=== PATIENT | female | born 1940 | race Caucasian/White ===

== ENCOUNTER 2017-12-20 08:08 | Outpatient (CLI) | payer MEDICARE, MEDICAID, SELFPAY ==
[2017-12-20 11:37] LABS: ALT 56 U/L (12-78); AST 57 U/L (15-37); Albumin 3.4 g/dL (3.4-5.0); Alkaline Phosphatase 94 U/L (46-116); Anion Gap 11.1 mmol/L (3-11); BUN 9 mg/dL (7-18); Bilirubin, Total 0.5 mg/dL (0.2-1.0); CO2 26.9 mmol/L (21.0-32.0); Calcium 8.8 mg/dL (8.5-10.1); Chloride 102 mmol/L (98-107); Glucose 124 mg/dL (70-100); Potassium 3.8 mmol/L (3.5-5.1); Sodium 140 mmol/L (136-145); Total Protein 7.4 g/dL (6.4-8.2)
[2017-12-20 11:45] LABS: CREATININE 0.48 mg/dL (0.55-1.02)
[2017-12-20 12:22] LABS: Hemoglobin A1C 7.4 % (4.5-6.2)
== END 2017-12-20 08:28 ==
PROVIDERS: PCP Family Medicine; Visit Provider Family Medicine
DX: E11.9 Type 2 diabetes mellitus without complications (principal)
CPT/HCPCS: 36415; 80053; 83036

== ENCOUNTER 2018-03-23 18:42 | Outpatient (REF) | payer MEDICARE, MEDICAID, SELFPAY | END 2018-03-23 19:02 | LOC: LBN 18:42 | PROVIDERS: PCP Family Medicine; Visit Provider Family Medicine | DX: J11.1 Influenza due to unidentified influenza virus with other respiratory manifestations (principal) | CPT/HCPCS: 87449 ==

== ENCOUNTER 2018-06-20 09:01 | Outpatient (CLI) | payer MEDICARE, MEDICAID, SELFPAY ==
[2018-06-20 11:26] LABS: HCT 26.6 % (36.0-46.0); HGB 7.4 g/dL (12.0-15.5); Mean Corp. HGB Concentration 27.8 g/dL (32.0-36.0); Mean Corpuscular Hemoglobin 19.6 pg (27.0-33.0); Mean Platelet Volume 10.5 fL (8.0-11.0); Platelet Count 146 x1000/uL (130-400); RBC 3.78 m/cumm (4.00-5.20); RBC Distribution Width 17.2 % (11.7-14.6); White Blood Cell Count 3.03 k/cumm (4.4-10.8)
[2018-06-20 11:53] LABS: Hemoglobin A1C 7.4 % (4.5-6.2); Mean Corpuscular Volume 70.4 fL (80-95)
[2018-06-20 12:03] LABS: ALT 36 U/L (12-78); AST 37 U/L (15-37); Albumin 3.6 g/dL (3.4-5.0); Alkaline Phosphatase 124 U/L (46-116); Anion Gap 8.4 mmol/L (3-11); BUN 8 mg/dL (7-18); Bilirubin, Total 0.5 mg/dL (0.2-1.0); CO2 29.6 mmol/L (21.0-32.0); CREATININE 0.53 mg/dL (0.55-1.02); Calcium 9.1 mg/dL (8.5-10.1); Chloride 105 mmol/L (98-107); Glucose 106 mg/dL (70-100); Potassium 3.9 mmol/L (3.5-5.1); Sodium 143 mmol/L (136-145); TSH 1.22 uIU/mL (0.358-3.74); Total Protein 7.8 g/dL (6.4-8.2)
== END 2018-06-20 09:21 ==
PROVIDERS: PCP Family Medicine; Visit Provider Family Medicine
DX: E11.9 Type 2 diabetes mellitus without complications (principal); R63.4 Abnormal weight loss
CPT/HCPCS: 36415; 80053; 85027; 83036; 84443

== ENCOUNTER 2018-07-18 02:03 | Outpatient (CLI) | payer MEDICARE, MEDICAID, SELFPAY ==
[2018-07-18 13:12] LABS: HCT 31.1 % (36.0-46.0); HGB 9.2 g/dL (12.0-15.5); RBC 3.96 m/cumm (4.00-5.20); White Blood Cell Count 2.91 k/cumm (4.4-10.8)
[2018-07-18 13:13] LABS: Absolute Basophil Count 0.02 k/cumm (0.0-0.2); Absolute Eosinophil Count 0.07 k/cumm (0.0-0.7); Absolute Monocyte Count 0.24 k/cumm (0.11-0.7); Absolute Neutrophil Count 1.68 k/cumm (1.2-6.7); Basophils % 0.7; Eosinophils % 2.4; Lymphocytes % 30.9; Mean Corp. HGB Concentration 29.6 g/dL (32.0-36.0); Mean Corpuscular Hemoglobin 23.2 pg (27.0-33.0); Mean Corpuscular Volume 78.5 fL (80-95); Mean Platelet Volume 11.6 fL (8.0-11.0); Monocytes % 8.2; Neutrophils % 57.8; RBC Distribution Width 26.5 % (11.7-14.6)
[2018-07-18 13:32] LABS: Iron 58 ug/dL (50-175); Total Iron Binding Capacity 413 ug/dL (250-450); Transferrin Sat 14 % (15-50)
[2018-07-18 13:41] LABS: ALT 46 U/L (12-78); AST 50 U/L (15-37); Albumin 3.4 g/dL (3.4-5.0); Alkaline Phosphatase 131 U/L (46-116); Anion Gap 9.5 mmol/L (3-11); BUN 17 mg/dL (7-18); Bilirubin, Total 0.4 mg/dL (0.2-1.0); CO2 26.5 mmol/L (21.0-32.0); CREATININE 0.65 mg/dL (0.55-1.02); Calcium 8.7 mg/dL (8.5-10.1); Chloride 99 mmol/L (98-107); Ferritin 101 ng/mL (8-388); Glucose 291 mg/dL (70-100); Potassium 4.3 mmol/L (3.5-5.1); Sodium 135 mmol/L (136-145); Total Protein 7.5 g/dL (6.4-8.2)
[2018-07-18 13:58] LABS: Platelet Count 111 x1000/uL (130-400)
[2018-07-18 13:59] LABS: Anisocytosis 3+; Diff Comment RBC Morph Reviewed; Hypochromasia 2+; Macrocytosis 1+; Microcytosis 1+
[2018-07-18 14:00] LABS: Poikilocytes 1+
== END 2018-07-18 02:23 ==
PROVIDERS: PCP Family Medicine; Visit Provider Dermatology
DX: C22.0 Liver cell carcinoma (principal); D50.9 Iron deficiency anemia, unspecified
CPT/HCPCS: 36415; 80053; 82105; 82728; 83540; 83550; 85025

== ENCOUNTER 2018-11-05 10:37 | Outpatient (CLI) | payer MEDICARE, MEDICAID, SELFPAY ==
[2018-11-05 12:30] LABS: HCT 34.4 % (36.0-46.0); HGB 11.5 g/dL (12.0-15.5); Mean Corp. HGB Concentration 33.4 g/dL (32.0-36.0); Mean Corpuscular Hemoglobin 30.5 pg (27.0-33.0); Mean Corpuscular Volume 91.2 fL (80-95); Mean Platelet Volume 10.9 fL (8.0-11.0); Platelet Count 102 x1000/uL (130-400); RBC 3.77 m/cumm (4.00-5.20); White Blood Cell Count 3.42 k/cumm (4.4-10.8)
[2018-11-05 12:32] LABS: Iron 119 ug/dL (50-175); Total Iron Binding Capacity 279 ug/dL (250-450); Transferrin Sat 43 % (15-50)
[2018-11-05 12:39] LABS: COMMENT (LAB VIEW ONLY) 130.51 mg/dL; Microalb ug/mg Crea 61.3 ug/mg Cr
[2018-11-05 13:14] LABS: ALT 55 U/L (12-78); AST 48 U/L (15-37); Albumin 3.6 g/dL (3.4-5.0); Alkaline Phosphatase 109 U/L (46-116); BUN 10 mg/dL (7-18); Bilirubin, Total 0.7 mg/dL (0.2-1.0); CREATININE 0.63 mg/dL (0.55-1.02); Calcium 8.9 mg/dL (8.5-10.1); Chloride 97 mmol/L (98-107); Ferritin 97 ng/mL (8-388); Glucose 176 mg/dL (70-100); Potassium 4.4 mmol/L (3.5-5.1); Sodium 135 mmol/L (136-145); Total Protein 7.5 g/dL (6.4-8.2); Vitamin B12 353 pg/mL (193-986)
== END 2018-11-05 10:57 ==
PROVIDERS: PCP Family Medicine; Visit Provider Family Medicine
DX: D64.9 Anemia, unspecified (principal); E11.9 Type 2 diabetes mellitus without complications
CPT/HCPCS: 36415; 80053; 85027; 82043; 82570; 82607; 82728; 83036; 83540; 83550

== ENCOUNTER 2019-05-27 14:12 | Emergency (ER) | payer MEDICARE, MEDICAID, SELFPAY ==
[2019-05-27] VITALS (53 sets, daily range): BP systolic 103–144; BP diastolic 54–80; PULSE 89–133; RESP 12–31; TEMP 36.7–37.1; O2SAT 92–98
--- NOTE | 2019-05-27 15:15 | DI.US_ITS ---
EXAM: US ABDOMEN LIMITED CLINICAL HISTORY: RUQ, NEED Doppler, ascites, possible thrombosis TECHNIQUE: Ultrasound performed using standard protocol. COMPARISON: No exams were available for comparison FINDINGS: The liver has a shrunken, cirrhotic appearance. There are multiple hyperechoic lesions consistent w ith metastases. Ascites is noted around the liver as well as in all 4 quadrants, greatest in the lef t lower quadrant. Patient is status post cholecystectomy. There is no biliary dilatation. There is hepatopetal flow in the portal veins. The right kidney is unremarkable. The tail of the pancreas wa s obscured. IMPRESSION: Cirrhotic appearing liver with multiple hyperechoic lesions presumably representing metastases. Asci rakesh, greatest in the left lower quadrant. DATA REPOSITORY:
[2019-05-27 15:45] LABS: Abs Immature Grans 0.02 k/cumm (0.0-0.09); Absolute Basophil Count 0.03 k/cumm (0.0-0.2); Absolute Eosinophil Count 0.03 k/cumm (0.0-0.7); Absolute Lymphocyte Count 0.98 k/cumm (1.2-3.4); Absolute Monocyte Count 0.72 k/cumm (0.11-0.7); Absolute Neutrophil Count 5.56 k/cumm (1.2-6.7); Basophils % 0.4; Eosinophils % 0.4; HGB 11.6 g/dL (12.0-15.5); Immature Grans % 0.3 %; Lymphocytes % 13.4; Mean Corp. HGB Concentration 34.1 g/dL (32.0-36.0); Mean Corpuscular Hemoglobin 29.5 pg (27.0-33.0); Mean Corpuscular Volume 86.5 fL (80-95); Mean Platelet Volume 9.1 fL (8.0-11.0); Monocytes % 9.8; Neutrophils % 75.7; Platelet Count 282 x1000/uL (130-400); RBC 3.93 m/cumm (4.00-5.20); RBC Distribution Width 13.4 % (11.7-14.6); White Blood Cell Count 7.34 k/cumm (4.4-10.8)
--- NOTE | 2019-05-27 15:49 | W.ED.GENAD ---
Discharge Plan Discharge Details Chief Complaint: GenMedical Primary Care Provider: Barbie Mulligan ED Provider: Ryan Hoffman Home Meds and New Rx's Prescriptions: No Action (DME) Blood Glucose Test Strip 1 ea Miscellaneous DAILY Qty: 90 RF: 4 ferrous sulfate 325 mg (65 mg iron) tablet 325 mg PO BID Qty: 90 RF: 2 (DME) blood-glucose meter [OneTouch UltraMini] Kit See Rx Instructions .ROUTE .MEDSUPPLY Qty: 1 RF: 0 (DME) blood-glucose meter Misc See Rx Instructions .ROUTE .MEDSUPPLY Qty: 1 RF: 0 glyburide 5 mg tablet 5 mg PO BID Qty: 180 RF: 3 metformin 1,000 mg tablet 1,000 mg PO BID Qty: 180 RF: 2 (DME) lancets 28 gauge misc 1 ea Miscellaneous DAILY Qty: 90 RF: 2 furosemide 40 mg Tablet 40 mg PO DAILY RF: 0 vitamin E 100 unit Capsule 100 unit PO DAILY RF: 0 spironolactone 100 mg Tablet 100 mg PO DAILY RF: 0 oxycodone 5 mg Capsule 5 mg PO Q4H PRN PRNRF: 0 magnesium 250 mg Tablet 250 mg PO DAILY RF: 0 cholecalciferol (vitamin D3) 2,000 unit Tablet,Chewable 2,000 unit PO DAILY RF: 0 Medical Decision Making 78-year-old female with complicated past medical history, most recently that of hepatocellular carcinoma. MRI evaluation performed by Dr. Cordova at [facility] on the . This very well may just be worsening CA and cirrhosis, given her presentation, less likely spontaneous bacterial peritonitis. Will obtain EKG, laboratory values and recheck to Dr. Cordova. I was able to speak with Dr. Hdz is colleague. The patient's case is going to the tumor board tomorrow and they should have a game plan after that time. He does appear as though she does have metastatic disease now. Recommend therapeutic and diagnostic paracentesis, right upper quadrant ultrasound with Doppler to rule out portal vein thrombosis. Once the laboratory values and ultrasound are completed he would like to be contacted once again to determine whether or not paracentesis can be done here or whether transfer it makes more sense. I did reach out to our surgical team to make them aware of possible the need for paracentesis, they would like to be called back once INR and platelet count has been obtained. Patient is initially refusing any work-up and simply wants her abdomen drained. Discussed that we cannot use her labs from last week and we must obtain IV access and I am following the instructions given by Dr. Hdz. Patient is now agreeable. Right upper quadrant ultrasound with Doppler does not reveal any thrombus. Significant ascites although this is no surprise. Laboratory values would not prohibit paracentesis. At this time case was signed out to Dr. Herman. He will evaluate the patient himself and determine whether or not paracentesis performed by surgery or himself. We discussed the importance of reaching back after Dr. Hdz. Medical Records Medical records reviewed: Yes I reviewed the patient's medical records. Lab Data Lab results reviewed: Yes I reviewed the patient's lab results. Lab results narrative: Laboratory Tests Range/Units 05/27/19 05/27/19 05/27/19 15:35 15:35 15:35 WBC (4.4-10.8) k/cumm 7.34 RBC (4.00-5.20) m/cumm 3.93 L Hgb (12.0-15.5) g/dL 11.6 L Hct (36.0-46.0) % 34.0 L MCV (80-95) fL 86.5 MCH (27.0-33.0) pg 29.5 MCHC (32.0-36.0) g/dL 34.1 RDW (11.7-14.6) % 13.4 Plt Count (130-400) x1000/uL 282 MPV (8.0-11.0) fL 9.1 Immature Gran % % 0.3 Neutrophils % 75.7 Lymphocytes % 13.4 Monocytes % 9.8 Eosinophils % 0.4 Basophils % 0.4 Absolute Neutrophils (1.2-6.7) k/cumm 5.56 Absolute Lymphocytes (1.2-3.4) k/cumm 0.98 L Absolute Monocytes (0.11-0.7) k/cumm 0.72 H Absolute Eosinophils (0.0-0.7) k/cumm 0.03 Absolute Basophils (0.0-0.2) k/cumm 0.03 PT (9.3-11.0) sec INR (0.9-1.1) APTT (21.0-31.4) sec Sodium (136-145) mmol/L 131 L Potassium (3.5-5.1) mmol/L 5.0 Chloride (98-107) mmol/L 97 L Carbon Dioxide (21.0-32.0) mmol/L 22.3 Anion Gap (3-11) mmol/L 11.7 H BUN (7-18) mg/dL 32 H Creatinine (0.55-1.02) mg/dL 1.31 H Estimated GFR/1.73 m2 (mL/min/1.73m2) 39.06 Glucose (74-106) mg/dL 212 H Calcium (8.5-10.1) mg/dL 8.0 L Total Bilirubin (0.2-1.0) mg/dL 0.8 AST (15-37) U/L 46 H ALT (14-59) U/L 14 Alkaline Phosphatase (46-116) U/L 145 H Ammonia (11-32) umol/L 30 Total Protein (6.4-8.2) g/dL 7.0 Albumin (3.4-5.0) g/dL 2.4 L Range/Units 05/27/19 15:35 WBC (4.4-10.8) k/cumm RBC (4.00-5.20) m/cumm Hgb (12.0-15.5) g/dL Hct (36.0-46.0) % MCV (80-95) fL MCH (27.0-33.0) pg MCHC (32.0-36.0) g/dL RDW (11.7-14.6) % Plt Count (130-400) x1000/uL MPV (8.0-11.0) fL Immature Gran % % Neutrophils % Lymphocytes % Monocytes % Eosinophils % Basophils % Absolute Neutrophils (1.2-6.7) k/cumm Absolute Lymphocytes (1.2-3.4) k/cumm Absolute Monocytes (0.11-0.7) k/cumm Absolute Eosinophils (0.0-0.7) k/cumm Absolute Basophils (0.0-0.2) k/cumm PT (9.3-11.0) sec 13.4 H INR (0.9-1.1) 1.3 H APTT (21.0-31.4) sec 25.1 Sodium (136-145) mmol/L Potassium (3.5-5.1) mmol/L Chloride (98-107) mmol/L Carbon Dioxide (21.0-32.0) mmol/L Anion Gap (3-11) mmol/L BUN (7-18) mg/dL Creatinine (0.55-1.02) mg/dL Estimated GFR/1.73 m2 (mL/min/1.73m2) Glucose (74-106) mg/dL Calcium (8.5-10.1) mg/dL Total Bilirubin (0.2-1.0) mg/dL AST (15-37) U/L ALT (14-59) U/L Alkaline Phosphatase (46-116) U/L Ammonia (11-32) umol/L Total Protein (6.4-8.2) g/dL Albumin (3.4-5.0) g/dL ECG Data Attestation: I personally reviewed and interpreted this ECG (s) as follows: Interpretation: EKG performed at 1544 reveals sinus tachycardia, ventricular to 119. No acute ST elevation or depression segments. HPI General Mode of arrival: ambulatory. Date/Time Provider Initiated Documentation: 05/27/19 14:21. Limitations to Documentation: no limitations. Information obtained by: patient and family. HPI Narrative: This is an 78-year-old female with a significant past medical history of cirrhosis, hepatocellular carcinoma, hypertension, diabetes, anemia, presented to the ER today for increased fluid retention and swelling in her abdomen. This is chronic in nature but getting worse over the past 1 to 2 weeks. She was recently seen by her team in [facility], Dr. Cordova, on the of last month. Had a full work-up including MRI, awaiting to hear the results and plan tomorrow. There does appear to be some confusion as to her exact prognosis and plan with her cancer. Reports general lethargy, worsening over the past week or 2. Denies recent illness or trauma. Denies fever, chest pain. Reports that he does feel as though her abdomen is pushing on her chest which makes breathing more difficult but denies shortness of breath. She was started on diuretics last week when seen by Dr. Cordova. Related Data Home Medications Medication Instructions Recorded Confirmed ferrous sulfate 325 mg (65 mg 325 mg PO BID #90 tab 06/24/18 05/27/19 iron) tablet blood-glucose meter #1 each 01/08/19 02/18/19 blood-glucose meter #1 each 01/09/19 02/18/19 blood sugar diagnostic #90 strip 02/18/19 02/18/19 glyburide 5 mg tablet 5 mg PO BID #180 tab-cap 03/18/19 05/27/19 metformin 1,000 mg tablet 1,000 mg PO BID #180 tab-cap 03/18/19 05/27/19 lancets 28 gauge #90 ea 04/22/19 cholecalciferol (vitamin D3) 2,000 unit PO DAILY 05/27/19 05/27/19 furosemide 40 mg PO DAILY 05/27/19 05/27/19 magnesium 250 mg PO DAILY 05/27/19 05/27/19 oxycodone 5 mg PO Q4H PRN PRN 05/27/19 05/27/19 spironolactone 100 mg PO DAILY 05/27/19 05/27/19 vitamin E 100 unit PO DAILY 05/27/19 05/27/19 Previous Rx's Medication Instructions Recorded ferrous sulfate 325 mg (65 mg 325 mg PO BID #90 tab 06/24/18 iron) tablet blood-glucose meter #1 each 01/08/19 blood-glucose meter #1 each 01/09/19 blood sugar diagnostic #90 strip 02/18/19 glyburide 5 mg tablet 5 mg PO BID #180 tab-cap 03/18/19 metformin 1,000 mg tablet 1,000 mg PO BID #180 tab-cap 03/18/19 lancets 28 gauge #90 ea 04/22/19 Allergies Allergy/AdvReac Type Severity Reaction Status Date / Time No Known Allergies Allergy Unverified 05/27/19 14:29 General Stated Complaint: GenMedical TITO: 2 Review of Systems Constitutional Constitutional: Denies chills, Reports fatigue, Denies fever(s), Denies headache(s) and Reports lethargy Eyes Eyes: Denies change in vision ENT Ears, Nose, Mouth, and Throat: Denies dizziness, Denies headache(s) and Denies throat swelling Cardiovascular Cardiovascular: Denies chest pain and Denies dyspnea Respiratory Respiratory: Denies cough and Denies dyspnea Gastrointestinal Gastrointestinal: Reports abdominal pain, Denies diarrhea, Denies nausea and Denies vomiting Genitourinary Genitourinary: Denies dysuria Musculoskeletal Musculoskeletal: Denies myalgias Integumentary/Breasts Skin/Breast: Denies rash Neurologic Neurologic: Reports confusion, Denies dizziness and Denies headache(s) Psychiatric Psychiatric: Reports confusion Endocrine Endocrine: Reports fatigue Allergic/Immunologic Allergic/Immunologic: Denies throat swelling [facility] Medical History Colon polyp Diabetes mellitus mamaged with PO meds. Hypertension Non-alcoholic fatty liver disease Postmenopausal bleeding Onset 05/2013. neg vag path screen EMBx Surgical History Cholecystectomy (~2001) closed liver bx Cystectomy, Mini Lap Ovarian 1988 Dilation and curettage 1988 Endometrial Biopsy (08/26/13) for PMB - aoc Extraction of cataract 2011 Family History Sister Diabetes Essential hypertension twin sister, non-smoker, mets at 65 Mother Heart disease Brother Personal history of malignant neoplasm LUNG Heart disease Father No problems noted. Sister No problems noted. Sister Personal history of malignant neoplasm LUNG Heart disease Social History Smoking/Tobacco Use Status: Former Tobacco Use Alcohol Intake: never Drug use: Never Substance use type: does not use Household members: spouse What type of physical activity do you participate in: none Do you feel safe at home: Yes Do you feel safe in your relationship?: Yes Exam Const General: cooperative and acute distress mild Orientation: alert and awake [facility] Head: normal to inspection, normocephalic and atraumatic Mouth: moist mucous membranes Eyes Conjunctivae: conjunctivae normal Neck Neck: normal visual inspection, full ROM, trachea midline and supple Resp Effort & Inspection: normal respiratory effort and able to speak in complete sentences Auscultation: clear to auscultation bilaterally Cardio Rate: tachycardic (Tachycardia in the 120s) GI Inspection: distended Palpation: firm, no guarding, not rigid, tender (Diffusely) and ascites (Moderate, severe) Auscultation: normal bowel sounds Back/Spine/Pelvis Back: No back tenderness Skin General skin exam: no rashes or lesions noted Neuro General: alert, awake, moves all extremities and no focal motor deficits Cranial Nerves: CN's II-XI intact bilaterally Cognition: normal cognition Sensory Exam: no sensory deficits noted Psych Appearance: grossly normal Mental Status: mental status grossly normal Course Vital Signs Vital signs: Vital Signs Temperature 36.7 C 05/27/19 14:20 Pulse 124 H 05/27/19 14:20 Respiratory Rate 22 05/27/19 14:20 Blood Pressure 121/68 05/27/19 14:20 Pulse Oximetry 96 05/27/19 14:20 Temperature 36.7 C 05/27/19 14:20 Temperature Source Temporal Artery Scan 05/27/19 14:20 Pulse 120 H 05/27/19 15:31 Pulse 125 H 05/27/19 15:31 Respiratory Rate 23 05/27/19 15:31 Respiratory Effort Non-Labored 05/27/19 14:28 Blood Pressure 112/73 05/27/19 15:31 Blood Pressure Mean 80 05/27/19 15:31 Blood Pressure Position Supine 05/27/19 14:20 Pulse Oximetry 94 L 05/27/19 15:31 Oxygen Delivery Method Room Air 05/27/19 14:20 Oxygen Flow Rate 0 05/27/19 14:20 Pain Level 0 05/27/19 14:20
[2019-05-27 15:55] LABS: Ammonia 30 umol/L (11-32)
[2019-05-27 15:58] LABS: ALT 14 U/L (14-59); AST 46 U/L (15-37); Albumin 2.4 g/dL (3.4-5.0); Alkaline Phosphatase 145 U/L (46-116); Anion Gap 11.7 mmol/L (3-11); BUN 32 mg/dL (7-18); Bilirubin, Total 0.8 mg/dL (0.2-1.0); CO2 22.3 mmol/L (21.0-32.0); CREATININE 1.31 mg/dL (0.55-1.02); Chloride 97 mmol/L (98-107); Estimated GFR 39.06 (mL/min/1.73m2); Glucose 212 mg/dL (74-106); Sodium 131 mmol/L (136-145)
[2019-05-27 15:59] LABS: INR 1.3 (0.9-1.1); PTT Activated 25.1 sec (21.0-31.4); Prothrombin Time 13.4 sec (9.3-11.0)
--- NOTE | 2019-05-27 16:44 | DI.VRAD_ITS ---
PROCEDURE INFORMATION: Exam: US Abdomen Limited, Right Upper Quadrant Exam date and time: 05/27/2019 3:18 PM Age: 78 years old Clinical indication: Abdominal pain; Other: Pressure from known ascites; Patient HX: Main, right, left portal veins show hepatopedal flow TECHNIQUE: Imaging protocol: Real-time ultrasound of the abdomen with image documentation. Examination was focused on the right upper quadrant. COMPARISON: No relevant prior studies available. FINDINGS: Liver: Multiple liver lesions consistent with history of liver metastasis, largest 3.3 cm. Nodular contour to the liver consistent with hepatocellular dysfunction/ cirrhosis. Gallbladder: Gallbladder surgically absent. Common bile duct: No biliary ductal dilatation. Common bile duct 5 mm. Pancreas: Visualized pancreas unremarkable. Tail not well seen due to overlying bowel gas. Right kidney: Normal. No mass. No hydronephrosis. Kidney length 10.3 cm cm. Portal venous: Portal vein patent with hepatopedal flow. Intraperitoneal space: Moderate to large ascites, deepest pocket left lower quadrant 15.3 cm. IMPRESSION: 1. Multiple liver lesions consistent with history of liver metastasis, largest 3.3 cm. Nodular contour to the liver consistent with hepatocellular dysfunction/ cirrhosis. 2. Moderate to large ascites, deepest pocket left lower quadrant 15.3 cm. Dictated and Authenticated by: Rodrigo Maier MD. Ordering:CRUZ Davis MD
--- NOTE | 2019-05-27 18:00 | PAPNONF_PTH ---
PATIENT: EULALIA RODRIGUEZ LOC: U#:[id number] AGE/SX: 78/F ROOM: RE05/27/[address]: Berry Herman : 1940 BED: DIS: 05/27/2019 SPEC #: [id number] RECD: 05/27/19 18:53 STATUS: MARK REQ #: [id number] ELENA: 05/27/19 18:[address]: Berry Herman DEPT: [facility] Cytology RECD BY: Flory Rangel ENTERED: 05/27/19 18:54 SP TYPE: BELEN WHITE DR: Barbie Mulligan MD Tissues: 1 - BODY FLUID CYTO(NOT S/U/N/EM)[facility] Procedures: BODY FLUID CYTO(NOT SPU/UR/NIP/ENDOM)[facility] Comments: [id number] (TOTAL VOLUME - 35 ml's, SENT FRESH)
--- NOTE | 2019-05-27 18:03 | NUR.NOTE ---
Nursing Note: 1730 Surgeon at bedside. Paracentesis to be performed.
--- NOTE | 2019-05-27 18:18 | SCONE_ITS ---
Date of service: 05/27/19 Time of Service: 18:18 Assessment and Plan Assessment and plan (1) Hepatocellular carcinoma: Status: Acute (2) Anemia: Status: Acute (3) Ascites: Status: Acute Assessment and plan: symptomatic ascites. Paracenticsis done for 4L fluid studies/cytology and culture done cont spironalactone/lasix. low salt/high protein diet F/u w/ hepatology as scheduled pt is going to have to have repeat P.taps done. She can call the office to set this up. Prob will require every 2 wk taps Will review records from [facility] remove dressing in 24 hrs shower in 24 hrs activity as tolerated. if redness/drainage- call office (4) Non-alcoholic fatty liver disease: Status: Acute (5) Essential hypertension: Status: Acute (6) History of tobacco use: Status: Acute (7) Essential hypertension: Status: Acute (8) Diabetes mellitus: Status: Acute History of Present Illness Narrative: pt [resented w/ symptomatic ascites. She has a hx of BREWSTER and has developed primary liver Ca. This has been treated w/ RFA. Lately the tumor has started to grow. She has developed ascties in the last few wks. She has not had a tap before. She denies trauma. She is not on asa or blood thinners. She know not to take tylenol. SHe does not drink ETOH. She is on lasix/aldactone- but she does not know the does. She just recently started on it. She also has been eating salt as a home remedy. I did d/w her daughter/grand daughter, that it is important she eat a low sodium/high protein diet. She is not a primary setswana speaker and her daughters translate. Consults Consult date: 05/27/19 Requesting physician: Berry Herman Review of Systems All systems reviewed & are unremarkable except as noted in HPI and below Constitutional Comments: She denies any chest pain. She is feeling SOB. no cough or fever. She is a long standing DM. She c/o pain and feeling uncomfortable. She has not had much of an appetite lately, and has not been eating well. [facility] Family History Sister Diabetes Essential hypertension twin sister, non-smoker, mets at 65 Mother Heart disease Brother Personal history of malignant neoplasm LUNG Heart disease Father No problems noted. Sister No problems noted. Sister Personal history of malignant neoplasm LUNG Heart disease Social History Smoking/Tobacco Use Status: Former Tobacco Use Alcohol Intake: never Drug use: Never Substance use type: does not use Household members: spouse What type of physical activity do you participate in: none Do you feel safe at home: Yes Do you feel safe in your relationship?: Yes Exam HENMT Head: normal to inspection Ears: hearing grossly normal bilaterally Teeth and gingiva: fair dentition Chest Chest: normal inspection of the chest Resp Effort & Inspection: able to speak in complete sentences Auscultation: clear to auscultation bilaterally Cardio Rate: regular rate Rhythm: regular rhythm GI Inspection: distended and striae Palpation: ascites Other: tense abdominal ascites. no peritonits Results Last Vital Signs Temp 37.1 C 05/27/19 16:26 Pulse 115 H 05/27/19 18:01 Resp 22 05/27/19 18:01 BP 117/63 05/27/19 18:01 Pulse Ox 95 05/27/19 18:01 Labs Result diagrams: 05/27/19 15:35 05/27/19 15:35 Labs: Laboratory Results - last 24 hr 05/27/19 05/27/19 05/27/19 15:35 15:35 15:35 WBC 7.34 RBC 3.93 L Hgb 11.6 L Hct 34.0 L MCV 86.5 MCH 29.5 MCHC 34.1 RDW 13.4 Plt Count 282 MPV 9.1 Immature Gran % 0.3 Neutrophils % 75.7 Lymphocytes % 13.4 Monocytes % 9.8 Eosinophils % 0.4 Basophils % 0.4 Absolute Neutrophils 5.56 Absolute Lymphocytes 0.98 L Absolute Monocytes 0.72 H Absolute Eosinophils 0.03 Absolute Basophils 0.03 PT INR APTT Sodium 131 L Potassium 5.0 Chloride 97 L Carbon Dioxide 22.3 Anion Gap 11.7 H BUN 32 H Creatinine 1.31 H Estimated GFR/1.73 m2 39.06 Glucose 212 H Calcium 8.0 L Total Bilirubin 0.8 AST 46 H ALT 14 Alkaline Phosphatase 145 H Ammonia 30 Total Protein 7.0 Albumin 2.4 L 05/27/19 15:35 WBC RBC Hgb Hct MCV MCH MCHC RDW Plt Count MPV Immature Gran % Neutrophils % Lymphocytes % Monocytes % Eosinophils % Basophils % Absolute Neutrophils Absolute Lymphocytes Absolute Monocytes Absolute Eosinophils Absolute Basophils PT 13.4 H INR 1.3 H APTT 25.1 Sodium Potassium Chloride Carbon Dioxide Anion Gap BUN Creatinine Estimated GFR/1.73 m2 Glucose Calcium Total Bilirubin AST ALT Alkaline Phosphatase Ammonia Total Protein Albumin
--- NOTE | 2019-05-27 18:19 | W.PM.OP ---
Date of service: 05/27/19 Time of Service: 18:19 Operative Note Operative Note DATE OF PROCEDURE: 05/27/19 PRE-OP DIAGNOSIS: BREWSTER/primary liver cancer POST-OP DIAGNOSIS: same PROCEDURE: paracenticis SURGEON: Jennifer Narayan ANESTHESIA: local ESTIMATED BLOOD LOSS: 1 PATHOLOGY: other COMPLICATIONS: None Patient was transported to: other Patient's condition: stable Procedure Description: PROCEDURE: paracentisis SURGEON: Jennifer Narayan ANESTHESIA: local ESTIMATED BLOOD LOSS: 1 PATHOLOGY: other COMPLICATIONS: None Patient was transported to: floor Patient's condition: stable Findings: 3200cc straw colored proteins Procedure Description: A paracentisis is being performed for diagnostic purposes and for symptoms of shortness of abdominal pain and distention from acute liver failure. Informed consent was obtained explaining risks and benefits of the procedure, including but not limited to bleeding, infection,damage to the solid organs or blood vessels, Recurrence, complications of anesthesia and other unforetold complications. PROCEDURE: The patient is brought to the procedure room and placed in the seated position. Ultrasound is used to localize the pocket on the midline abdom. pt says shes in too much pain to roll over. The area is marked and then prepped and draped in the usual sterile fashion using a ChloraPrep scrub solution. 10 cc's of 1% Lidocaine is used to anesthetize the skin. The small dale is made with a #11 blade. The needle and catheter is then inserted, aspirating as it is inserted. The needle is then removed. The catheter is then hooked up to the Vacutainer system and 4000 cc's of sero-sanguinous colored fluid is evacuated. The catheter is removed; pressure is held. Sterile compression dressing is applied. The patient tolerated the procedure well without complications. Fluid is sent for diagnostic testing. pt can call the office when she feels she requires another tap. She will prob require every 2-4wks. She does she hepatolgy at [facility] [place] [facility] regularly and should contact them. Also she just recently started on spironalactone. She is unsure of the dose. They may want to increase the dose.
[2019-05-27 18:55] LABS: Source: Peritoneal
--- NOTE | 2019-05-27 19:01 | NUR.NOTE ---
Nursing Note: Per MD request, start new IV for Albumin administration. DC is on hold for now. New IV established in the left AC.
[2019-05-27 19:03] LABS: Clarity CLOUDY; Mononuclear Cells 100 % (0-0); Nucleated Cells 874 /MM3 (0-0); Polynuclear Cells 0 % (0-0); Source PERITONEAL
[2019-05-27] MEDS: ALBUMIN HUMAN 25 GM/100 ML BTL IV ×2 (19:32→19:59)
--- NOTE | 2019-05-27 19:59 | NUR.NOTE ---
Nursing Note: PT care report transferred to Princess (RN). Pt condition is stable.
[2019-05-28 16:25] LABS: Glucose, Fluid 196 mg/dL (See Note)
[2019-05-29 11:58] LABS: Fluid Type PERITONEAL; Lactate Dehydrogenase (LD), BF 754 U/L
[2019-05-29 12:54] LABS: Fluid Type PERITONEAL; Protein,Total, BF 2.8 g/dL
== END 2019-05-27 21:00 | disposition home or self-care (01) ==
PROVIDERS: Physician Assistant; Surgery; Emergency Provider Student in an Organized Health Care Education/Training Program; PCP Family Medicine
DX: R18.8 Other ascites (principal); C22.0 Liver cell carcinoma; E11.9 Type 2 diabetes mellitus without complications; Z79.84 Long term (current) use of oral hypoglycemic drugs; I10 Essential (primary) hypertension
CPT/HCPCS: 36415; 49082; 80053; 82947; 93005; 96361; 96374; 99252; 99281; 99285; 76705; 81373; 82140; 83615; 83986; 84155; 84157; 85025; 85610; 85730; 87070; 87205; 88104; 89051; 93010

== ENCOUNTER 2019-05-27 23:05 | Emergency (ER) | payer MEDICARE, MEDICAID, SELFPAY ==
[2019-05-27 23:18] VITALS: BP 135/65; PULSE 102; RESP 20; TEMP 37.3; O2SAT 98
--- NOTE | 2019-05-27 23:22 | NUR.NOTE ---
Nursing Note: Pressure dressing applied with ABD and Coban. Appears to have controlled leakage at this time.
--- NOTE | 2019-05-27 23:34 | ED.GENADUL_ITS ---
Discharge Plan Disposition Patient Disposition: HOME Condition: Stable Discharge Details Chief Complaint: Recheck Clinical Impression: Status post abdominal paracentesis, Draining postoperative wound Primary Care Provider: Barbie Mulligan ED Provider: Berry Herman Home Meds and New Rx's Prescriptions: Continued (DME) Blood Glucose Test Strip 1 ea Miscellaneous DAILY Qty: 90 RF: 4 ferrous sulfate 325 mg (65 mg iron) tablet 325 mg PO BID Qty: 90 RF: 2 (DME) blood-glucose meter [OneTouch UltraMini] Kit See Rx Instructions .ROUTE .MEDSUPPLY Qty: 1 RF: 0 (DME) blood-glucose meter Misc See Rx Instructions .ROUTE .MEDSUPPLY Qty: 1 RF: 0 glyburide 5 mg tablet 5 mg PO BID Qty: 180 RF: 3 Hold Instructions: Home Medication placed on hold at Doctor's office metformin 1,000 mg tablet 1,000 mg PO BID Qty: 180 RF: 2 (DME) lancets 28 gauge misc 1 ea Miscellaneous DAILY Qty: 90 RF: 2 vitamin E 100 unit Capsule 100 unit PO DAILY RF: 0 oxycodone 5 mg Capsule 5 mg PO Q4H PRN PRNRF: 0 magnesium 250 mg Tablet 250 mg PO DAILY RF: 0 cholecalciferol (vitamin D3) 2,000 unit Tablet,Chewable 2,000 unit PO DAILY RF: 0 Discharge Instructions Additional Instructions: Use ostomy bag to collect draining fluid. Please follow-up with general surgery. Call tomorrow. Return to the ER for any worsening or new concerning symptoms. Referrals: Jennifer Narayan DO [OSTEOPATHIC DOCTOR] - Discharge Data Discharge Date/Time-TO BE ENTERED AT DEPARTURE: 05/28/19 00:20 Medical Decision Making <Berry Herman MD - Last Filed: 06/09/19 09:21> 78-year-old female with history of metastatic hepatocellular carcinoma, seen here earlier today for ascites and had therapeutic paracentesis with removal of 4 L of ascitic fluid, returns with fluid leaking from paracentesis site. I called and spoke with general surgeon on-call, Dr. Narayan, discussed ED presentation and course and she recommends placing ostomy bag over paracentesis site. She notes that paracentesis site may continue to drain for 3 days. She recommends outpatient follow-up. <Jamarcus Chacon MD - Last Filed: 05/28/19 00:51> Patient not seen/signed out to me. Discharged per Dr. Herman's instructions. HPI <Berry Herman MD - Last Filed: 06/09/19 09:21> General Mode of arrival: ambulatory . Date/Time Provider Initiated Documentation: 05/27/19 23:34 . Limitations to Documentation: no limitations . Information obtained by: patient . HPI Narrative: 78-year-old female with history of metastatic hepatocellular carcinoma, seen here earlier today for ascites and had therapeutic paracentesis with removal of 4 L of ascitic fluid, returns now with complaint of fluid leaking from paracentesis site. Patient and family note wound is leaking red-tinged clear fluid and has soaked through some gauze. Otherwise feeling much better than prior to having the paracentesis performed. No abdominal pain or fever. Related Data Home Medications Medication Instructions Recorded Confirmed ferrous sulfate 325 mg (65 mg 325 mg PO BID #90 tab 06/24/18 06/05/19 iron) tablet blood-glucose meter #1 each 01/08/19 05/29/19 blood-glucose meter #1 each 01/09/19 05/29/19 blood sugar diagnostic #90 strip 02/18/19 05/29/19 glyburide 5 mg tablet 5 mg PO BID #180 tab-cap 03/18/19 06/05/19 metformin 1,000 mg tablet 1,000 mg PO BID #180 tab-cap 03/18/19 06/05/19 lancets 28 gauge #90 ea 04/22/19 05/29/19 cholecalciferol (vitamin D3) 2,000 unit PO DAILY 05/27/19 06/05/19 magnesium 250 mg PO DAILY 05/27/19 06/05/19 oxycodone 5 mg PO Q4H PRN PRN 05/27/19 06/05/19 vitamin E 100 unit PO DAILY 05/27/19 06/05/19 Previous Rx's Medication Instructions Recorded ferrous sulfate 325 mg (65 mg 325 mg PO BID #90 tab 06/24/18 iron) tablet blood-glucose meter #1 each 01/08/19 blood-glucose meter #1 each 01/09/19 blood sugar diagnostic #90 strip 02/18/19 glyburide 5 mg tablet 5 mg PO BID #180 tab-cap 03/18/19 metformin 1,000 mg tablet 1,000 mg PO BID #180 tab-cap 03/18/19 lancets 28 gauge #90 ea 04/22/19 Allergies Allergy/AdvReac Type Severity Reaction Status Date / Time No Known Allergies Allergy Verified 06/05/19 11:30 General Stated Complaint: Recheck TITO: 3 Review of Systems <Berry Herman MD - Last Filed: 06/09/19 09:21> Constitutional Constitutional: Denies fever(s) Gastrointestinal Gastrointestinal: Denies abdominal pain PFSH <Berry Herman MD - Last Filed: 06/09/19 09:21> Medical History (Updated 06/06/19 @ 11:07 by Ryan Greene) Advanced hepatic cirrhosis (Acute) Cirrhosis of liver with ascites (Acute) Colon polyp Diabetes mellitus mamaged with PO meds. Hepatocellular carcinoma (Acute) Hypertension Liver cirrhosis secondary to nonalcoholic steatohepatitis (BREWSTER) (Acute) Non-alcoholic fatty liver disease Postmenopausal bleeding Onset 05/2013. neg vag path screen EMBx Surgical History Cholecystectomy (~2001) closed liver bx Cystectomy, Mini Lap Ovarian 1989 Dilation and curettage 1988 Endometrial Biopsy (08/26/13) for PMB - aoc Extraction of cataract 2011 Family History Sister Diabetes Essential hypertension twin sister, non-smoker, mets at 65 Mother Heart disease Brother Personal history of malignant neoplasm LUNG Heart disease Father No problems noted. Sister No problems noted. Sister Personal history of malignant neoplasm LUNG Heart disease Social History Smoking/Tobacco Use Status: Former Tobacco Use Alcohol Intake: never Drug use: Never Substance use type: does not use Household members: spouse What type of physical activity do you participate in: none Do you feel safe at home: Yes Do you feel safe in your relationship?: Yes Additional Social history: Cared for by daughter. Exam <Berry Herman MD - Last Filed: 06/09/19 09:21> Const General: cooperative and no acute distress Cardio Jugular venous pressure: no JVD Rate: regular rate and not tachycardic Rhythm: regular rhythm GI Palpation: soft, not firm, no guarding, no masses, not rigid and nontender Other: Paracentesis site draining serosanguineous fluid Neuro General: patient alert and patient awake Course <Berry Herman MD - Last Filed: 06/09/19 09:21> Vital Signs Vital signs: Vital Signs Temperature 37.3 C 05/27/19 23:18 Pulse 102 H 05/27/19 23:18 Respiratory Rate 20 05/27/19 23:18 Blood Pressure 135/65 05/27/19 23:18 Pulse Oximetry 98 05/27/19 23:18 Temperature 37.3 C 05/27/19 23:18 Temperature Source Oral 05/27/19 23:18 Pulse 102 H 05/27/19 23:18 Respiratory Rate 20 05/27/19 23:18 Respiratory Effort 05/27/19 23:20 Blood Pressure 135/65 05/27/19 23:18 Blood Pressure Position Supine 05/27/19 23:18 Pulse Oximetry 98 05/27/19 23:18 Oxygen Delivery Method Room Air 05/27/19 23:18 Oxygen Flow Rate 0 05/27/19 23:18 Pain Level 0 05/27/19 23:18
[2019-05-28 00:14] VITALS: BP 135/65; PULSE 102; RESP 20; TEMP 37.3; O2SAT 98
== END 2019-05-28 00:20 | disposition home or self-care (01) ==
PROVIDERS: Emergency Provider Student in an Organized Health Care Education/Training Program; PCP Family Medicine
DX: T81.89XA Other complications of procedures, not elsewhere classified, initial encounter (principal); C22.0 Liver cell carcinoma; E11.9 Type 2 diabetes mellitus without complications; Z79.84 Long term (current) use of oral hypoglycemic drugs; I10 Essential (primary) hypertension
CPT/HCPCS: 99281

== ENCOUNTER → 2019-06-05 10:00 | Outpatient (BNVA) | payer MEDICARE, MEDICAID, SELFPAY | PROVIDERS: PCP Family Medicine; Referring Provider Family Medicine; Visit Provider Surgery | DX: K72.90 Hepatic failure, unspecified without coma (principal); R41.82 Altered mental status, unspecified; K74.60 Unspecified cirrhosis of liver; R18.8 Other ascites; K75.81 Nonalcoholic steatohepatitis (NASH) ==

== ENCOUNTER 2019-06-05 12:46 | Inpatient (IN) | payer MEDICARE, MEDICAID, SELFPAY ==
[2019-06-05] VITALS (10 sets, daily range): BP systolic 113–116; BP diastolic 50–65; PULSE 104–108; RESP 20; TEMP 36.3–37.3; O2SAT 95–99
[2019-06-05] MEDS: Normal Saline 1,000 ML 100 ML IV ×2 (12:01→22:36)
--- NOTE | 2019-06-05 12:50 | HPE_ITS ---
Date of service: 06/05/19 Time of Service: 12:51 Assessment and Plan Assessment and plan (1) Dehydration: Status: Acute (2) Acute kidney failure: Status: Acute Assessment and plan: -unclear etiology -at this point I don't think she has SBP or any infectious process. -potential exists for hepatorenal syndrome. her cancer and hepatic processes appear stable/unchanged from when I saw her on 05/26, and labs from her last visit at [facility] [place]. -Upon re-evaluation this evening, she does appear brighter and more cognizant. We will continue w/ judicious hydration and repeat labs in am. I am not going to pursue other testing at this time. -She does have a palliative consult scheduled in the am. cont supportive cares Qualifiers: Acute renal failure type: unspecified Qualified Code(s): N17.9 - Acute kidney failure, unspecified (3) Liver cirrhosis secondary to nonalcoholic steatohepatitis (BREWSTER): Status: Acute (4) Cirrhosis of liver with ascites: Status: Acute (5) Advanced hepatic cirrhosis: Status: Acute (6) Change in mental status: Status: Acute (7) Hepatocellular carcinoma: Status: Acute Assessment and plan: this is her third bout of HCR. She had x2 prior tumors that were treated w/ RFA and resolved. This latest tumor is larger and in an area that is not amenable to treatment w/ RFA. . Her hepatolgist at [facility] [place] recommended either chemo or palliative care. History of Present Illness Consults Consult date: 06/05/19 Narrative: pt presented to clinic today for tap of her abdominal ascites. She has significant mental status changes. She is lethargic and not able to even speak or keep her eyes open. Her daughter states that she has not been eating or drinking. She was started on duiretic therapy by her hepatologists in hopes of decreasing her ascites. She has not had them for 4 days. Review of Systems All systems reviewed & are unremarkable except as noted in HPI and below [facility] Medical History (Updated 06/05/19 @ 21:30 by Jennifer Narayan DO) Advanced hepatic cirrhosis (Acute) Cirrhosis of liver with ascites (Acute) Colon polyp Diabetes mellitus mamaged with PO meds. Hepatocellular carcinoma (Acute) Hypertension Liver cirrhosis secondary to nonalcoholic steatohepatitis (BREWSTER) (Acute) Non-alcoholic fatty liver disease Postmenopausal bleeding Onset 05/2013. neg vag path screen EMBx Surgical History Cholecystectomy (~2001) closed liver bx Cystectomy, Mini Lap Ovarian 1989 Dilation and curettage 1988 Endometrial Biopsy (08/26/13) for PMB - aoc Extraction of cataract 2011 Family History Sister Diabetes Essential hypertension twin sister, non-smoker, mets at 65 Mother Heart disease Brother Personal history of malignant neoplasm LUNG Heart disease Father No problems noted. Sister No problems noted. Sister Personal history of malignant neoplasm LUNG Heart disease Social History Smoking/Tobacco Use Status: Former Tobacco Use Alcohol Intake: never Drug use: Never Substance use type: does not use Household members: spouse What type of physical activity do you participate in: none Do you feel safe at home: Yes Do you feel safe in your relationship?: Yes Additional Social history: Cared for by daughter. Meds Home Medications and Allergies Home Medications Medication Instructions Recorded Confirmed Type ferrous sulfate 325 mg (65 mg 325 mg PO BID #90 tab 06/24/18 06/05/19 Rx iron) tablet blood-glucose meter #1 each 01/08/19 05/29/19 Rx blood-glucose meter #1 each 01/09/19 05/29/19 Rx blood sugar diagnostic #90 strip 02/18/19 05/29/19 Rx glyburide 5 mg tablet 5 mg PO BID #180 tab-cap 03/18/19 06/05/19 Rx metformin 1,000 mg tablet 1,000 mg PO BID #180 tab-cap 03/18/19 06/05/19 Rx lancets 28 gauge #90 ea 04/22/19 05/29/19 Rx cholecalciferol (vitamin D3) 2,000 unit PO DAILY 05/27/19 06/05/19 History magnesium 250 mg PO DAILY 05/27/19 06/05/19 History oxycodone 5 mg PO Q4H PRN PRN 05/27/19 06/05/19 History vitamin E 100 unit PO DAILY 05/27/19 06/05/19 History Allergies Allergy/AdvReac Type Severity Reaction Status Date / Time No Known Allergies Allergy Verified 06/05/19 11:30 Exam Const General: cooperative, healthy appearing, comfortable, no acute distress, well developed and well groomed Nutritional Appearance: average body habitus and well nourished Orientation: alert, awake and oriented x3 HENMT Head: normal to inspection, normocephalic and atraumatic Ears: hearing grossly normal bilaterally and external ears normal General nose exam: external nose normal Face and sinus: normal facial exam and sinuses nontender Mouth: oral mucosae normal, lip normal, tongue normal and moist mucous membranes Teeth and gingiva: dentition normal Eyes General: appearance normal, both eyes and all related structures Conjunctivae: conjunctivae normal Sclera: sclerae normal Pupils: PERRL Neck Neck: normal visual inspection and full ROM Chest Chest: normal inspection of the chest Resp Effort & Inspection: normal respiratory effort, able to speak in complete sentences, no cough, no nasal flaring, not tachypneic and no use of accessory muscles Auscultation: clear to auscultation bilaterally, no rales, no rhonchi and no wheezes Cardio Jugular venous pressure: no JVD Rate: regular rate Rhythm: regular rhythm GI Inspection: no edema and distended Palpation: soft, no masses, nontender and ascites Auscultation: normal bowel sounds Other: moderate ascites. no fluid wave. pt is denying pain at this time. She does have good bowels sounds. no redness. no drainage today from prior puncture site. Skin General skin exam: no rashes or lesions noted Trauma: no lacerations or abrasions Neuro General: alert, oriented x3, oriented, gait normal, moves all extremities, no focal motor deficits and CN's II-XI intact bilaterally Cognition: normal cognition Speech: speech normal Gait: normal gait Motor: muscle tone normal throughout Extrem General: normal to inspection, full ROM and no clubbing, cyanosis or edema Psych Appearance: grossly normal and well kempt Mental Status: mental status grossly normal Speech and Movement: speech and movement normal Affect: normal affect Results Last Vital Signs Temp 36.4 C L 06/05/19 11:32 Pulse 107 H 06/05/19 11:32 Resp 20 06/05/19 11:32 BP 113/65 06/05/19 11:32 Pulse Ox 96 06/05/19 11:32
--- NOTE | 2019-06-05 13:35 | NUR.NOTE ---
Nursing Note: It was decided that the patient should be admitted to ICU rather than have the paracentisis. Jane Devine RN called after orders were placed to assess the status of the ICU bed. This nurse then spoke with Viviane Pelayo and gave her report. Nurse Viviane noted that she needed about 10-15 minutes to get ready and it was agreed that the pt would be brought up after that. Pt's daughter was updated as to what the plan would be and then escorted this nurse and Jane Devine RN up to ICU.
[2019-06-05] MEDS: Pantoprazole 40 MG VIAL IVP (16:27)
[2019-06-05] MEDS: Normal Saline Flush 10 ML SYR IVP (16:27)
--- NOTE | 2019-06-05 17:06 | MCONE_ITS ---
Date of service: 06/05/19 Time of Service: 17:06 Assessment and Plan Assessment and plan (1) Acute kidney failure: Status: Acute Assessment and plan: Acute kidney failure most likely prerenal azotemia secondary to dehydration from poor oral intake. However I cannot exclude the possibility of hepatorenal syndrome. Plan will be to give her IV fluid hydration at a judicious rate and repeat her electrolytes and BUN and creatinine in the morning. We will give her antiemetics and analgesics. I will ask for a palliative care consult in the morning to help the patient and family plan for end-of-life care. Think the patient is a candidate for hospice Qualifiers: Acute renal failure type: unspecified Qualified Code(s): N17.9 - Acute kidney failure, unspecified (2) Dehydration: Status: Acute Assessment and plan: As above (3) End stage liver disease: Status: Acute Assessment and plan: Patient is a candidate for hospice. We will asked palliative care to get involved to help the family and the patient plan for end-of-life decision-making. (4) Liver cirrhosis secondary to nonalcoholic steatohepatitis (BREWSTER): Status: Acute (5) Hepatocellular carcinoma: Status: Acute History of Present Illness History of Present Illness Chief Complaint: Generalized weakness nausea, poor oral intake Narrative: 78-year-old female with a past medical history of diabetes mellitus type 2, cirrhosis of the liver secondary to nonalcoholic steatohepatitis, hepatocellular carcinoma with metastasis, ascites who presented to outpatient surgery today for paracentesis of her ascites. Patient has not been eating or drinking very well for the past several days. Her last completed meal was 4 days ago. She has been refusing her medications. Her dairy technologist had her on diuretics to treat the ascites and she took that for 2 days but discontinued it because of protracted nausea and vomiting. There is been no diarrhea and no fever or rigors. When she presented to outpatient surgery for paracentesis Dr. Narayan, her surgeon, felt that there was not a significant enough ascites to justify paracentesis and she found the patient profoundly weak and lethargic. For that reason Dr. Narayan admitted the patient and requested consultation with medicine. Her outpatient labs include a CBC that showed no leukocytosis. Hemoglobin was stable at 12.3 g. Her chemistry panel showed markedly elevated BUN and creatinine of 82 and 2.0. Her troponin was normal at less than 0.05. Her LFTs were mildly elevated with an AST of 39 and alkaline phosphatase of 164. Her alpha-fetoprotein is pending. Potassium was high at 5.7 and her sodium was low at 126. Patient is now admitted to the hospital for IV fluid hydration. I discussed her CODE STATUS with her and her family. Family indicated that they been try to have this conversation with the patient for quite some time but whenever they talk about the patient avoids the discussion and states that when she dies she will and why think about it before then. Family is requesting a palliative care consult which we will obtain in the morning. Review of Systems Narrative: Includes depressed appetite protracted nausea and vomiting with dry heaves. Negative for diarrhea or dysuria. Negative for abdominal pain. Negative for chest pain or chest pressure or dyspnea. [facility] Medical History Advanced hepatic cirrhosis (Acute) Cirrhosis of liver with ascites (Acute) Colon polyp Diabetes mellitus mamaged with PO meds. Hypertension Liver cirrhosis secondary to nonalcoholic steatohepatitis (BREWSTER) (Acute) Non-alcoholic fatty liver disease Postmenopausal bleeding Onset 05/2013. neg vag path screen EMBx Surgical History Cholecystectomy (~2001) closed liver bx Cystectomy, Mini Lap Ovarian 1989 Dilation and curettage 1988 Endometrial Biopsy (08/26/13) for PMB - aoc Extraction of cataract 2011 Family History Sister Diabetes Essential hypertension twin sister, non-smoker, mets at 65 Mother Heart disease Brother Personal history of malignant neoplasm LUNG Heart disease Father No problems noted. Sister No problems noted. Sister Personal history of malignant neoplasm LUNG Heart disease Social History Smoking/Tobacco Use Status: Former Tobacco Use Alcohol Intake: never Drug use: Never Substance use type: does not use Household members: spouse What type of physical activity do you participate in: none Do you feel safe at home: Yes Do you feel safe in your relationship?: Yes Additional Social history: Cared for by daughter. Exam Narrative Exam Narrative: Elderly female lying in bed with her eyes closed. She does open her eyes and nods yes and no to my questions. Because Afghan is not her first language she does require interpretation from her daughters who speak Estonian. HEENT is remarkable for dry mucous membranes. Neck is supple nontender with flat neck veins. Lungs are clear to auscultation. Heart is regular rate and rhythm. Abdomen is protuberant and distended but soft. There is palpable hepatomegaly. No bruits Extremities without peripheral cyanosis or edema Results Last Vital Signs Temp 36.7 C 06/05/19 15:23 Pulse 107 H 06/05/19 15:23 Resp 20 06/05/19 15:23 BP 116/61 06/05/19 14:16 Pulse Ox 95 06/05/19 15:23
[2019-06-06] VITALS (9 sets, daily range): BP systolic 90–121; BP diastolic 46–69; PULSE 74–114; RESP 18–20; TEMP 36.6–37.2; O2SAT 95–97
[2019-06-06 02:47] LABS: Bilirubin Small (Negative); Blood Negative (Negative); Clarity Clear (Clear); Glucose Negative (Negative); Ketones Trace mg/dL (Negative); Leukocyte Esterase Small (Negative); Nitrite Negative (Negative); Specific Gravity 1.025 (1.005-1.025); Urobilinogen 0.2 EU/dL (Up TO 0.2); pH 5.5 (5-8)
[2019-06-06 02:56] LABS: RBC 0-2 HPF (0-2)
[2019-06-06 02:57] LABS: Bacteria Few HPF (Negative); C & S Indicated? Yes; Casts 0-2 Hyaline LPF (Negative); Crystals Negative HPF (Negative); Epithelial Cells Few HPF (Negative); Mucus Negative (Negative)
[2019-06-06] MEDS: Normal Saline Flush 10 ML SYR IVP ×2 (06:47→16:10)
[2019-06-06 07:11] LABS: Anion Gap 9.7 mmol/L (3-11); BUN 73 mg/dL (7-18); CO2 19.3 mmol/L (21.0-32.0); CREATININE 1.65 mg/dL (0.55-1.02); Calcium 7.6 mg/dL (8.5-10.1); Chloride 97 mmol/L (98-107); Estimated GFR 29.93 (mL/min/1.73m2); Glucose 224 mg/dL (74-106); Potassium 5.3 mmol/L (3.5-5.1); Sodium 126 mmol/L (136-145)
--- NOTE | 2019-06-06 08:58 | INITIAL_ITS ---
Care Management Initial Assess REASON FOR HOSPITALIZATION:: SHANNON secondary to diuretics PAST MEDICAL HISTORY/PAST SURGICAL HISTORY:: Advanced hepatic cirrhosis, cirrhosis of liver with ascites, colon polyp, DM, hepatocellular carcinoma, hypertension, liver cirrhosis secondary to non-alcoholic steatohepatitis (BREWSTER), non-alcholic fatty liver disease, postmenopaulsal bleeding, cholecystectomy, closed liver bx, dilation and curettage, endometrial biopsy, extraction of cataract PREVIOUS FUNCTIONAL STATUS/SOCIAL/FAMILY SUPPORTS:: Katja resides in [place], [place]. She is actively dying and her daughters have met with Dr. Johnson this morning and would like to bring Katja home on Hospice. CM coordinated consult with Derrick for 1330. CURRENT FUNCTIONAL STATUS:: Katja was lying in bed on her side, asking her daughter if she could go home. ADVANCE DIRECTIVES:: Financial power of commercial litigation attorney; daughters: Ellyn and Irma Has patient been provided with information about the portal?: No Did the patient sign up for the portal?: No CODE STATUS:: DNR/DNI INSURANCE COVERAGE / FINANCIAL ISSUES:: Medicaid. Medicare PRIMARY CARE PHYSICIAN:: Barbie Mulligan POTENTIAL DISCHARGE NEEDS:: Palliative consult, Hospice consult, discussion around goals of care and discharge planning considerations. PATIENT/FAMILY EDUCATION NEEDS:: Review of discharge instructions, discuss Ask Me Three. ANTICIPATED BARRIERS TO DISCHARGE:: None identified. TRANSPORTATION:: TBD by mobility and disposition. PLAN:: Katja and her daughters will meet with Palliative Care and per Dr. Johnson will have a Hospice consult as well. CM coordinated Hospice consult with Derrick for 1300. Anticipate she will discharge home today and will be opened to Hospice services upon returning home. CARLITA continues to follow; undetermined transportation coordination need at this time.
[2019-06-06] MEDS: Normal Saline 1,000 ML 100 ML IV (09:15)
--- NOTE | 2019-06-06 10:22 | W.PALLCONSUL ---
Date of service: 06/06/19 Time of Service: 09:38 History of Present Illness Narrative: Said there is an 78-year-old woman with known hepatocellular carcinoma. She has been in her usual state of health until about 3 weeks ago. She was keeping her own house, and doing quite well. Over the last 3 weeks she has had a significant decline. More fatigue more cravings for salt and sugar. She has been accumulating ascites and did have it drawn off recently due to her discomfort her daughter brought her back to be ER yesterday. While in the ER Dr. Jackman ordered labs. These showed dehydration and renal failure. She was admitted to ICU for gentle hydration. I was asked to see Katja to determine the goals of care. I had actually planned to see patient today at her home, but she came into the hospital prior to this please note on May 26 her oncology team said there is nothing more we can do I am meeting with her daughter Cece. She states strongly that her mother would want to at home. She feels that her mother does not want any more interventions. And that at this point there is not much else that can be done. She would like to take her mom home as soon as possible. She had tears in her eyes as she was talking about this. Consults Consult date: 06/06/19 Requesting physician: Ryan Greene Assessment and Plan Assessment and plan (1) Hepatocellular carcinoma: Status: Acute (2) Acute kidney failure: Status: Acute Qualifiers: Acute renal failure type: unspecified Qualified Code(s): N17.9 - Acute kidney failure, unspecified (3) Liver cirrhosis secondary to nonalcoholic steatohepatitis (BREWSTER): Status: Acute (4) Cirrhosis of liver with ascites: Status: Acute (5) End of life care: Status: Acute Assessment and plan: 78 year old female with end stage cirrhosis from BREWSTER and hepatocellular carcinoma with progression. SHe has had ascites drawn off at least twice, now admitted for dehrdration and renal failure. Her daughter, Breezy, is by her side. After long discussion Breezy stated strongly that Katja should not suffer. She has limited life expectancy and Breezy wants her to live out her life at home and comfortable. She does not want any further agressive care unless it improves her comfort. Breezy wants her mother home on Hospice hakeem. I spoke with Dr Greene, who will discuss putting in a catheter to relieve pressure from ascites, with surgeon. This will be able to be accessed by home health to off ascites and to add to her comfort. Hospice consult for ease of transition to home care. Daughters may need help in caring for mother on Thur and Mon. They are willing to pay for this help. The other 5 days they can cover their mother's care. Katja designated her daughter, Breezy, as her DPOA. Breezy is already her DPOA for financial matters. COLST was completed. Katja was in agreement by head nod. Once home there will be no more antibiotics, fluids, etc I will check on Katja and Breezy tomorrow if Katja is still hospitalized. I discussed the plan with Care Management and Dr Greene. I have spent more than 50% of time in counseling with this patient. This document was created by [employer] and may contain grammatical and translation errors. Review of Systems Narrative: Stated is in bed. She does not appear to be in any pain. Through her daughter who is the medical anthropology director she is not uncomfortable. She does not have any nausea vomiting. She does not feel much like moving. [facility] Medical History (Updated 06/06/19 @ 11:07 by Ryan Greene) Advanced hepatic cirrhosis (Acute) Cirrhosis of liver with ascites (Acute) Colon polyp Diabetes mellitus mamaged with PO meds. Hepatocellular carcinoma (Acute) Hypertension Liver cirrhosis secondary to nonalcoholic steatohepatitis (BREWSTER) (Acute) Non-alcoholic fatty liver disease Postmenopausal bleeding Onset 05/2013. neg vag path screen EMBx Surgical History Cholecystectomy (~2001) closed liver bx Cystectomy, Mini Lap Ovarian 1988 Dilation and curettage 1988 Endometrial Biopsy (08/26/13) for PMB - aoc Extraction of cataract 2011 Family History Sister Diabetes Essential hypertension twin sister, non-smoker, mets at 65 Mother Heart disease Brother Personal history of malignant neoplasm LUNG Heart disease Father No problems noted. Sister No problems noted. Sister Personal history of malignant neoplasm LUNG Heart disease Social History Smoking/Tobacco Use Status: Former Tobacco Use Alcohol Intake: never Drug use: Never Substance use type: does not use Household members: spouse What type of physical activity do you participate in: none Do you feel safe at home: Yes Do you feel safe in your relationship?: Yes Additional Social history: Cared for by daughter. Exam Narrative Exam Narrative: Patient is lying in bed on her right side. She responds to my voice but looks to her daughter for translation. She does not appear to be in pain at this time. She does shake her head yes and no when I asked different questions. She listens intently to her daughter. Her heart is regular. Lungs?very little air movement. Abdomen she winced some as I examined her. It was not tense Results Last Vital Signs Temp 97.9 F 06/06/19 07:53 Pulse 102 H 06/06/19 07:54 Resp 20 06/06/19 07:53 BP 99/53 L 06/06/19 07:54 Pulse Ox 96 06/06/19 07:53 Labs Result diagrams: 06/06/19 06:00 Labs: Laboratory Results - last 24 hr 06/06/19 06/06/19 02:33 06:00 Sodium 126 L Potassium 5.3 H Chloride 97 L Carbon Dioxide 19.3 L Anion Gap 9.7 BUN 73 H Creatinine 1.65 H Estimated GFR/1.73 m2 29.93 Glucose 224 H Calcium 7.6 L Urine Color Yellow Urine Clarity Clear Urine pH 5.5 Ur Specific [place] 1.025 Urine Protein Negative Urine Ketones Trace H Urine Blood Negative Urine Nitrite Negative Urine Bilirubin Small H Urine Urobilinogen 0.2 Ur Leukocyte Esterase Small H Urine RBC 0-2 Urine WBC 3-5 Ur Epithelial Cells Few Urine Crystals Negative Urine Bacteria Few Urine Casts 0-2 hyaline Urine Mucus Negative Ur Culture Indicated? Yes Urine Glucose Negative
--- NOTE | 2019-06-06 10:55 | PGE_ITS ---
Date of Service Date of service: 06/06/19 Time of Service: 10:55 Assessment and Plan Assessment and plan (1) Hepatocellular carcinoma: Status: Acute Assessment and plan: Patient is at the end stage of her disease and it is very appropriate for her to enter into hospice. Case management is arranging for hospice to come to do their intake assessment while patient is at the [facility]. (2) Dehydration: Status: Acute Assessment and plan: Her acute renal insufficiency is improved with IV fluid hydration. However now that the patient is on comfort measures only once she is discharged home she will not be readmitted but hospice will manage any discomfort the patient has from her hepatocellular carcinoma and the patient will not receive any further IV fluid treatment. (3) Acute kidney failure: Status: Acute Assessment and plan: Improved with IV fluids but not resolved yet. Qualifiers: Acute renal failure type: unspecified Qualified Code(s): N17.9 - Acute kidney failure, unspecified (4) Liver cirrhosis secondary to nonalcoholic steatohepatitis (BREWSTER): Status: Acute Assessment and plan: End-stage liver disease eligible for hospice care. (5) Ascites: Status: Acute Assessment and plan: Her increased abdominal distention is suggestive of recurrent ascites. Dr. Narayan will talk with the patient and her family regarding whether or not the patient wants to have placement of a peritoneal catheter for outpatient paracentesis drainage. I am not sure that the patient is going to be keen about having a procedure done. Qualifiers: Ascites type: malignant Qualified Code(s): R18.0 - Malignant ascites Subjective Subjective Interval history since last seen: Patient has been receiving IV fluid hydration overnight for acute renal failure secondary to dehydration in the setting of metastatic hepatocellular carcinoma secondary to Brewster and cirrhosis. There is been some improvement in her azotemia with the BUN decreasing to 73 and her creatinine down to 1.65. I discussed her case with Dr. Narayan her surgical attending as well as with Dr. Shaniqua Johnson, palliative care physician. The patient and her family are agreeable to going on hospice service. Dr. Johnson suggested placement of a permanent catheter in the peritoneum to ease for drainage of ascites fluid in the future. I relayed this information to Dr. Narayan will discuss this with the family. Case management will consult with hospitalist to have them evaluate the patient for entry into hospice program. Patient is desires to be kept comfortable with no or minimal procedures. Although it sounds like she is entertaining the idea of a peritoneal catheter to ease with drainage of ascitic fluid. Exam Narrative Exam Narrative: With IV fluid hydration there is been some increase in her abdominal size. I suspect that she is having more ascites. Patient is uncomfortable and did not want me to touch her. Objective Objective Clinical Data: Abnormal lab results 06/06/19 06/06/19 Range/Units 02:33 06:00 Sodium 126 L (136-145) mmol/L Potassium 5.3 H (3.5-5.1) mmol/L Chloride 97 L (98-107) mmol/L Carbon Dioxide 19.3 L (21.0-32.0) mmol/L BUN 73 H (7-18) mg/dL Creatinine 1.65 H (0.55-1.02) mg/dL Glucose 224 H (74-106) mg/dL Calcium 7.6 L (8.5-10.1) mg/dL Urine Ketones Trace H (Negative) mg/dL Urine Bilirubin Small H (Negative) Ur Leukocyte Esterase Small H (Negative) Vital Signs Temperature 36.6 C 06/06/19 07:53 Temperature Source Temporal Artery Scan 06/06/19 07:53 Pulse 102 H 06/06/19 07:54 Pulse Rhythm Regular 06/06/19 07:53 Respiratory Rate 20 06/06/19 07:53 Respiratory Effort 06/06/19 07:53 Respiratory Depth Shallow 06/06/19 07:53 Respiratory Pattern Normal 06/06/19 07:53 Blood Pressure 99/53 L 06/06/19 07:54 Blood Pressure Mean 63 06/06/19 07:54 Blood Pressure Position Supine 06/05/19 15:23 Pulse Oximetry 96 06/06/19 07:53 Oxygen Delivery Method Room Air 06/06/19 07:53 Oxygen Flow Rate 0 06/06/19 07:53 Pain Level 0 06/06/19 07:53 Comment 06/05/19 11:32 Intake & Output 06/05/19 06/05/19 06/06/19 11:59 23:59 11:59 Intake Total 1420.833 / 7260.393 8809 / 1600 Output Total 505 / 505 Balance 1420.833 / 4008.304 1034 / 1095 Weight 61.235 kg 62.1 kg 62.1 kg Intake: IV 980.833 / 999.157 7752 / 1000 Oral 440 / 440 600 / 600 Output: Urine 505 / 505 Other: Urine Color Dark [place] Urine Appearance Cloudy Urine Odor None Comment refused by pt Stool Occult Blood Negative Stool Size Small Stool Characteristics Soft Formed Brown Voiding Methods Bedside Commode Laboratory Results Sodium 126 mmol/L (136-145) L 06/06/19 06:00 Potassium 5.3 mmol/L (3.5-5.1) H 06/06/19 06:00 Chloride 97 mmol/L (98-107) L 06/06/19 06:00 Carbon Dioxide 19.3 mmol/L (21.0-32.0) L 06/06/19 06:00 Anion Gap 9.7 mmol/L (3-11) 06/06/19 06:00 BUN 73 mg/dL (7-18) H 06/06/19 06:00 Creatinine 1.65 mg/dL (0.55-1.02) H 06/06/19 06:00 Estimated GFR/1.73 m2 29.93 (mL/min/1.73m2) 06/06/19 06:00 Glucose 224 mg/dL (74-106) H 06/06/19 06:00 Calcium 7.6 mg/dL (8.5-10.1) L 06/06/19 06:00 Urine Color Yellow (Yellow) 06/06/19 02:33 Urine Clarity Clear (Clear) 06/06/19 02:33 Urine pH 5.5 (5-8) 06/06/19 02:33 Ur Specific [place] 1.025 (1.005-1.025) 06/06/19 02:33 Urine Protein Negative mg/dL (Negative) 06/06/19 02:33 Urine Ketones Trace mg/dL (Negative) H 06/06/19 02:33 Urine Blood Negative (Negative) 06/06/19 02:33 Urine Nitrite Negative (Negative) 06/06/19 02:33 Urine Bilirubin Small (Negative) H 06/06/19 02:33 Urine Urobilinogen 0.2 EU/dL (Up TO 0.2) 06/06/19 02:33 Ur Leukocyte Esterase Small (Negative) H 06/06/19 02:33 Urine RBC 0-2 HPF (0-2) 06/06/19 02:33 Urine WBC 3-5 HPF (0-5) 06/06/19 02:33 Ur Epithelial Cells Few HPF (Negative) 06/06/19 02:33 Urine Crystals Negative HPF (Negative) 06/06/19 02:33 Urine Bacteria Few HPF (Negative) 06/06/19 02:33 Urine Casts 0-2 hyaline LPF (Negative) 06/06/19 02:33 Urine Mucus Negative (Negative) 06/06/19 02:33 Ur Culture Indicated? Yes 06/06/19 02:33 Urine Glucose Negative mg/dL (Negative) 06/06/19 02:33
--- NOTE | 2019-06-06 14:55 | NUR.NOTE ---
06/06/19) 1445 : AT 1400 in to do a paracentesis on the pt. Procedure explain to pt's daughter who translated this to the pt. Pt has had this procedure previoulsy so she does understand. The pt was placed on her left side for the procedure. Present in the room: Beau Leiva RN and Emerita Helms, student nurse. Under sterile procedure 4.6 liters of brownish fluid was drawn off. MD then placed a single stiitch at the site and placed a sterile gauze dsg. Pt repositioned for comfort. (wanting lunch). vital signs post procedure: HR 114 bpn, rr 18, BP 121/60. Nursing Note:
--- NOTE | 2019-06-06 15:09 | W.PM.PROGNOT ---
Date of Service Date of service: 06/06/19 Time of Service: 15:10 Assessment and Plan Assessment and plan (1) End of life care: Status: Acute Assessment and plan: pt and family have decided to enter hospice. pt no longer wants to eat or drink. paracentiscisis done today for symptom relief. hold sccu checks adn oral antihyperglycemics. transfer via ambulance tomorrow comfort measures while in hosp (2) Hepatocellular carcinoma: Status: Acute (3) Dehydration: Status: Acute (4) Acute kidney failure: Status: Acute Qualifiers: Acute renal failure type: unspecified Qualified Code(s): N17.9 - Acute kidney failure, unspecified (5) Liver cirrhosis secondary to nonalcoholic steatohepatitis (BREWSTER): Status: Acute (6) Cirrhosis of liver with ascites: Status: Acute (7) Advanced hepatic cirrhosis: Status: Acute (8) End stage liver disease: Status: Acute Subjective Subjective Interval history since last seen: pt Cr/BUN improved w/ hydration. however, pt is refusing to eat/drink. Her abdomen has increased w/ IV fluids. family/pt would like tap done today. Exam HENNM Head: normal to inspection Teeth and gingiva: edentulous Chest Chest: normal inspection of the chest Resp Effort & Inspection: normal respiratory effort and able to speak in complete sentences Auscultation: clear to auscultation bilaterally GI Inspection: distended Palpation: ascites Other: distended from ascites Skin Other: no break down Extrem General: normal to inspection and no clubbing, cyanosis or edema Objective Objective Clinical Data: Abnormal lab results 06/06/19 06/06/19 Range/Units 02:33 06:00 Sodium 126 L (136-145) mmol/L Potassium 5.3 H (3.5-5.1) mmol/L Chloride 97 L (98-107) mmol/L Carbon Dioxide 19.3 L (21.0-32.0) mmol/L BUN 73 H (7-18) mg/dL Creatinine 1.65 H (0.55-1.02) mg/dL Glucose 224 H (74-106) mg/dL Calcium 7.6 L (8.5-10.1) mg/dL Urine Ketones Trace H (Negative) mg/dL Urine Bilirubin Small H (Negative) Ur Leukocyte Esterase Small H (Negative) Vital Signs Temperature 36.6 C 06/06/19 07:53 Temperature Source Temporal Artery Scan 06/06/19 07:53 Pulse 114 H 06/06/19 14:38 Pulse Rhythm Regular 06/06/19 07:53 Respiratory Rate 18 06/06/19 14:38 Respiratory Effort 06/06/19 07:53 Respiratory Depth Shallow 06/06/19 07:53 Respiratory Pattern Normal 06/06/19 07:53 Blood Pressure 121/60 06/06/19 14:38 Blood Pressure Mean 63 06/06/19 07:54 Blood Pressure Position Supine 06/05/19 15:23 Pulse Oximetry 97 06/06/19 14:38 Oxygen Delivery Method Room Air 06/06/19 14:38 Oxygen Flow Rate 0 06/06/19 14:38 Pain Level 0 06/06/19 14:38 Comment 06/06/19 14:38 Intake & Output 06/05/19 06/06/19 06/06/19 23:59 11:59 23:59 Intake Total 1420.833 / 6519.773 6049 / 1600 Output Total 535 / 535 Balance 1420.833 / 4211.128 1699 / 1065 Weight 62.1 kg 62.1 kg Intake: IV 980.833 / 889.762 8081 / 1000 Oral 440 / 440 600 / 600 Output: Urine 535 / 535 Other: Urine Color Dark [place] Urine Appearance Cloudy Urine Odor None Comment refused by pt Stool Occult Blood Negative Stool Size Small Stool Characteristics Soft Formed Brown Voiding Methods Bedside Commode Laboratory Results Sodium 126 mmol/L (136-145) L 06/06/19 06:00 Potassium 5.3 mmol/L (3.5-5.1) H 06/06/19 06:00 Chloride 97 mmol/L (98-107) L 06/06/19 06:00 Carbon Dioxide 19.3 mmol/L (21.0-32.0) L 06/06/19 06:00 Anion Gap 9.7 mmol/L (3-11) 06/06/19 06:00 BUN 73 mg/dL (7-18) H 06/06/19 06:00 Creatinine 1.65 mg/dL (0.55-1.02) H 06/06/19 06:00 Estimated GFR/1.73 m2 29.93 (mL/min/1.73m2) 06/06/19 06:00 Glucose 224 mg/dL (74-106) H 06/06/19 06:00 Calcium 7.6 mg/dL (8.5-10.1) L 06/06/19 06:00 Urine Color Yellow (Yellow) 06/06/19 02:33 Urine Clarity Clear (Clear) 06/06/19 02:33 Urine pH 5.5 (5-8) 06/06/19 02:33 Ur Specific [place] 1.025 (1.005-1.025) 06/06/19 02:33 Urine Protein Negative mg/dL (Negative) 06/06/19 02:33 Urine Ketones Trace mg/dL (Negative) H 06/06/19 02:33 Urine Blood Negative (Negative) 06/06/19 02:33 Urine Nitrite Negative (Negative) 06/06/19 02:33 Urine Bilirubin Small (Negative) H 06/06/19 02:33 Urine Urobilinogen 0.2 EU/dL (Up TO 0.2) 06/06/19 02:33 Ur Leukocyte Esterase Small (Negative) H 06/06/19 02:33 Urine RBC 0-2 HPF (0-2) 06/06/19 02:33 Urine WBC 3-5 HPF (0-5) 06/06/19 02:33 Ur Epithelial Cells Few HPF (Negative) 06/06/19 02:33 Urine Crystals Negative HPF (Negative) 06/06/19 02:33 Urine Bacteria Few HPF (Negative) 06/06/19 02:33 Urine Casts 0-2 hyaline LPF (Negative) 06/06/19 02:33 Urine Mucus Negative (Negative) 06/06/19 02:33 Ur Culture Indicated? Yes 06/06/19 02:33 Urine Glucose Negative mg/dL (Negative) 06/06/19 02:33
--- NOTE | 2019-06-06 15:15 | DSE_ITS ---
Date of service: 06/06/19 Time of Service: 15:17 DS: Diagnosis Discharge Diagnosis (1) Hepatocellular carcinoma: Status: Acute (2) Dehydration: Status: Acute (3) Acute kidney failure: Status: Acute (4) Liver cirrhosis secondary to nonalcoholic steatohepatitis (BREWSTER): Status: Acute (5) Ascites: Status: Acute Discharge Plan Disposition Patient Disposition: HOME Condition: Deteriorating Discharge Details Reason For Visit: [facility]ANN[facility] SECONDARY TO DIURETICS Admit Date/Time: 06/05/19 12:46 Admit Provider: Jennifer Narayan Attending Provider: Jennifer Narayan Primary Care Provider: [facility] Hospital Course: pt was admitted w/ SHANNON secondary to dehydration. Pt has stopped eating and drinking. She has decided to go into hospice and comfort cares only. She will be transferred to home via ambulance as she can no longer walk. Since she is not eating, she can stop accu checks and metformin and glyburide. diet as tolerated. activity and meds per hospice. Home Meds and New Rx's Prescriptions: No Action (DME) Blood Glucose Test Strip 1 ea Miscellaneous DAILY Qty: 90 RF: 4 ferrous sulfate 325 mg (65 mg iron) tablet 325 mg PO BID Qty: 90 RF: 2 (DME) blood-glucose meter [OneTouch UltraMini] Kit See Rx Instructions .ROUTE .MEDSUPPLY Qty: 1 RF: 0 (DME) blood-glucose meter Misc See Rx Instructions .ROUTE .MEDSUPPLY Qty: 1 RF: 0 glyburide 5 mg tablet 5 mg PO BID Qty: 180 RF: 3 Hold Instructions: Home Medication placed on hold at Doctor's office metformin 1,000 mg tablet 1,000 mg PO BID Qty: 180 RF: 2 (DME) lancets 28 gauge misc 1 ea Miscellaneous DAILY Qty: 90 RF: 2 vitamin E 100 unit Capsule 100 unit PO DAILY RF: 0 oxycodone 5 mg Capsule 5 mg PO Q4H PRN PRNRF: 0 magnesium 250 mg Tablet 250 mg PO DAILY RF: 0 cholecalciferol (vitamin D3) 2,000 unit Tablet,Chewable 2,000 unit PO DAILY RF: 0 Discharge Instructions Additional Instructions: pt is going homeon hospice. all orders thru them. pt is not eating. If she continues not to eat/drink, than taking metformin/glyburide and accu checks are not necessary. also does not need to be on Iron or Vit D Activity:: Activity as Tolerated Equipment/Supplies:: hospice Diet:: As Tolerated DS: Summary Status at Discharge Functional status at discharge: bed bound Overall status at discharge: other Mental Status: mental status grossly normal Speech and Movement: other (oscillates between aware and sleeping) Mood: labile mood Affect: sad and indifferent Exam Psych Mental Status: mental status grossly normal Speech and Movement: other (oscillates between aware and sleeping) Mood: labile mood Affect: sad and indifferent DS: Data Vitals/I&O Vitals and I&O: Vital Signs Temperature 36.6 C 06/06/19 07:53 Temperature Source Temporal Artery Scan 06/06/19 07:53 Pulse 114 H 06/06/19 14:38 Pulse Rhythm Regular 06/06/19 07:53 Respiratory Rate 18 06/06/19 14:38 Respiratory Effort 06/06/19 07:53 Respiratory Depth Shallow 06/06/19 07:53 Respiratory Pattern Normal 06/06/19 07:53 Blood Pressure 121/60 06/06/19 14:38 Blood Pressure Mean 63 06/06/19 07:54 Blood Pressure Position Supine 06/05/19 15:23 Pulse Oximetry 97 06/06/19 14:38 Oxygen Delivery Method Room Air 06/06/19 14:38 Oxygen Flow Rate 0 06/06/19 14:38 Pain Level 0 06/06/19 14:38 Comment 06/06/19 14:38 Intake & Output 06/05/19 06/06/19 06/06/19 23:59 11:59 23:59 Intake Total 1420.833 / 5661.009 7002 / 1600 Output Total 535 / 535 Balance 1420.833 / 0754.069 3086 / 1065 Weight 62.1 kg 62.1 kg Intake: IV 980.833 / 683.580 7290 / 1000 Oral 440 / 440 600 / 600 Output: Urine 535 / 535 Other: Urine Color Dark [place] Urine Appearance Cloudy Urine Odor None Comment refused by pt Stool Occult Blood Negative Stool Size Small Stool Characteristics Soft Formed Brown Voiding Methods Bedside Commode Data Completed and Pending Labs on day of discharge: Labs from last 24 hours 06/06/19 06/06/19 06:00 02:33 Sodium 126 L Potassium 5.3 H Chloride 97 L Carbon Dioxide 19.3 L Anion Gap 9.7 BUN 73 H Creatinine 1.65 H Estimated GFR/1.73 m2 29.93 Glucose 224 H Calcium 7.6 L Urine Color Yellow Urine Clarity Clear Urine pH 5.5 Ur Specific [place] 1.025 Urine Protein Negative Urine Ketones Trace H Urine Blood Negative Urine Nitrite Negative Urine Bilirubin Small H Urine Urobilinogen 0.2 Ur Leukocyte Esterase Small H Urine RBC 0-2 Urine WBC 3-5 Ur Epithelial Cells Few Urine Crystals Negative Urine Bacteria Few Urine Casts 0-2 hyaline Urine Mucus Negative Ur Culture Indicated? Yes Urine Glucose Negative 06/06/19 02:33 Urine - Reflex from Urine Culture - Pending Preliminary micro results at discharge 06/06/19 02:33 Urine Culture - Pending Urine - Reflex from Counts include 234 beds at the [facility] Medical History (Updated 06/06/19 @ 11:07 by Ryan Greene) Advanced hepatic cirrhosis (Acute) Cirrhosis of liver with ascites (Acute) Colon polyp Diabetes mellitus mamaged with PO meds. Hepatocellular carcinoma (Acute) Hypertension Liver cirrhosis secondary to nonalcoholic steatohepatitis (BREWSTER) (Acute) Non-alcoholic fatty liver disease Postmenopausal bleeding Onset 05/2013. neg vag path screen EMBx Surgical History Cholecystectomy (~2001) closed liver bx Cystectomy, Mini Lap Ovarian 1989 Dilation and curettage 1988 Endometrial Biopsy (08/26/13) for PMB - aoc Extraction of cataract 2011 Family History Sister Diabetes Essential hypertension twin sister, non-smoker, mets at 65 Mother Heart disease Brother Personal history of malignant neoplasm LUNG Heart disease Father No problems noted. Sister No problems noted. Sister Personal history of malignant neoplasm LUNG Heart disease Social History Smoking/Tobacco Use Status: Former Tobacco Use Alcohol Intake: never Drug use: Never Substance use type: does not use Household members: spouse What type of physical activity do you participate in: none Do you feel safe at home: Yes Do you feel safe in your relationship?: Yes Additional Social history: Cared for by daughter.
[2019-06-06] MEDS: Pantoprazole 40 MG VIAL IVP (16:10)
[2019-06-06] MEDS: ALBUMIN HUMAN 25 GM/100 ML BTL IV ×2 (16:10→17:32)
--- NOTE | 2019-06-06 16:21 | PDOC.HHF2F_ITS ---
Home Health Certification Home Health Certification: 1. Encounter Date and Reason I certify that EULALIA RODRIGUEZ was seen by Jennifer Narayan on 06/06/19 and that I had a [id number] encounter with this patient that meets the physician face to face encounter requirements. 2. Clinical Findings Supporting Skilled Need and Homebound Status I certify that home health services are medically necessary, include either intermittent fci and/or physical/speech therapy, and that this patie nt is homebound in that absences from the home require considerable and taxing effort and are infrequent or of short duration, or are attributable to the need to receive medical care. [X] (a) Attached documentation from encounter provides clinical findings supporting skilled need and homebound status (including what assistance patient requires to leave the home). The encounter with the patient was in whole, or in part, for the following medical condition, which is the primary reason for home health care: [facility] [employer] [facility]: home health RN and hospice for end of life cares. pt also requires hospital bed and bedside commode. She will need ambulance transfer home on stretcher as she can no longer walk/stand/transfer due to weekness. Physical Therapy: Speech Therapy: Homebound: 3. Certification and Authentication I certify that I composed the above information based on my clinical judgement relating to this patient's medical condition and, if applicable, clinical findings communicated to me by the NPP or inpatient physician who performed the Home Health Referral. All further orders will be obtained through (Community Based Physician - PCP)
--- NOTE | 2019-06-07 06:48 | ROE_ITS ---
REPORT OF OPERATIVE PROCEDURE DATE OF PROCEDURE June 06, 2019 PREOPERATIVE DIAGNOSES Hepatocellular carcinoma Malignant abdominal ascites. PREOPERATIVE DIAGNOSES Hepatocellular carcinoma Malignant abdominal ascites. PROCEDURE Paracentesis. SURGEON Jennifer Narayan D.O. ANESTHESIA Local. ESTIMATED BLOOD LOSS Less than 1 cc. CONDITION The patient tolerated the procedure well without complication. INDICATION FOR PROCEDURE The patient is an 78-year-old female well known to me. She has a history of BREWSTER and has developed he patocellular carcinoma and has pretty severe cirrhosis. She was admitted yesterday with dehydration. After we hydrated her, her ascites had increased and she would like a paracentesis today for symptom relief. Informed consent was obtaining explaining the risks and benefits of the procedure, including but not limited to bleeding, infection, damage to internal organs, chronic leakage, infection, and other unfo retold complications. PROCEDURE DESCRIPTION The patient is in the ICU. The area for localization is in the left upper quadrant. Ultrasound is use d to identify a pocket, and ensured there was no underlying bowel. The area was prepped and draped in the usual sterile fashion using a ChloraPrep scrub solution. The area was infiltrated with 10 cc of 1% lidocaine with epinephrine. A small dale was made with a #11 blade. Paracentesis catheter was in serted in the abdomen and the needle removed, it was hooked up the vac container. 4.6 liters of sero us bloody fluid was removed. There was no significant bloating noted. A stitch of #4-0 Nylon was plac ed, because the last time she had severe draining for 48 hours afterwards. Sterile compression dress ing was applied. The patient tolerated the procedure without complications. She remained stable in t he room throughout the entirety of the procedure. She will receive albumin postoperatively.
[2019-06-07 07:14] VITALS: PULSE 58
--- NOTE | 2019-06-07 09:00 | PGE_ITS ---
Date of Service Date of service: 06/07/19 Time of Service: 09:00 Assessment and Plan Assessment and plan (1) End of life care: Status: Acute Assessment and plan: being transferred home today. paperwork completed meds per hospice rivera prn. pt is very private and does not like having people help her to toilet pt is not eating and drinking. stop oral antihyperglycemic agents and accu checks hospital bed and commode ordered for pt for home hospice will be there today (2) Hepatocellular carcinoma: Status: Acute (3) Dehydration: Status: Acute (4) Acute kidney failure: Status: Acute Qualifiers: Acute renal failure type: unspecified Qualified Code(s): N17.9 - Acute kidney failure, unspecified (5) Liver cirrhosis secondary to nonalcoholic steatohepatitis (BREWSTER): Status: Acute (6) Cirrhosis of liver with ascites: Status: Acute (7) Advanced hepatic cirrhosis: Status: Acute (8) Change in mental status: Status: Acute (9) End stage liver disease: Status: Acute (10) Ascites: Status: Acute Qualifiers: Ascites type: malignant Qualified Code(s): R18.0 - Malignant ascites Subjective Subjective Interval history since last seen: pt resting comfortable. had a good night per nursing. Not eating much will d/c IV for home can place rivera per pt wishes. PluerX cath not availble until . could place monday per pt comfort- if desires pt is not eating/drinking on her own. cont care per hospice. Objective Objective Clinical Data: Vital Signs Temperature 37.1 C 06/06/19 20:15 Temperature Source Temporal Artery Scan 06/06/19 17:55 Pulse 103 H 06/06/19 20:15 Pulse Rhythm Regular 06/06/19 07:53 Respiratory Rate 20 06/06/19 20:15 Respiratory Effort 06/06/19 20:37 Respiratory Depth Normal 06/06/19 20:37 Respiratory Pattern Normal 06/06/19 20:37 Blood Pressure 90/46 L 06/06/19 17:28 Blood Pressure Mean 55 06/06/19 17:28 Blood Pressure Position Supine 06/05/19 15:23 Pulse Oximetry 95 06/06/19 20:15 Oxygen Delivery Method Room Air 06/06/19 20:15 Oxygen Flow Rate 0 06/06/19 20:15 Pain Level 0 06/06/19 20:15 Comment 06/06/19 20:15 Intake & Output 06/06/19 06/06/19 06/07/19 11:59 23:59 11:59 Intake Total 1600 / 2915 1315 / 2915 50 / 50 Output Total 535 / 635 100 / 635 330 / 330 Balance 1065 / 2280 1215 / 2280 -280 / -280 Weight 62.1 kg Intake: IV 1000 / 2200 1200 / 2200 Oral 600 / 715 115 / 715 50 / 50 Output: Urine 535 / 635 100 / 635 330 / 330 Other: Urine Color Dark Berkley Light Berkley Dark Berkley Urine Appearance Cloudy Clear Clear Urine Odor None Normal Comment refused by pt Pt has refused rivera Stool Occult Blood Negative Stool Size Small Stool Characteristics Soft Formed Brown Voiding Methods Bedside Commode Bedside Commode Laboratory Results Sodium 126 mmol/L (136-145) L 06/06/19 06:00 Potassium 5.3 mmol/L (3.5-5.1) H 06/06/19 06:00 Chloride 97 mmol/L (98-107) L 06/06/19 06:00 Carbon Dioxide 19.3 mmol/L (21.0-32.0) L 06/06/19 06:00 Anion Gap 9.7 mmol/L (3-11) 06/06/19 06:00 BUN 73 mg/dL (7-18) H 06/06/19 06:00 Creatinine 1.65 mg/dL (0.55-1.02) H 06/06/19 06:00 Estimated GFR/1.73 m2 29.93 (mL/min/1.73m2) 06/06/19 06:00 Glucose 224 mg/dL (74-106) H 06/06/19 06:00 Calcium 7.6 mg/dL (8.5-10.1) L 06/06/19 06:00 Urine Color Yellow (Yellow) 06/06/19 02:33 Urine Clarity Clear (Clear) 06/06/19 02:33 Urine pH 5.5 (5-8) 06/06/19 02:33 Ur Specific [place] 1.025 (1.005-1.025) 06/06/19 02:33 Urine Protein Negative mg/dL (Negative) 06/06/19 02:33 Urine Ketones Trace mg/dL (Negative) H 06/06/19 02:33 Urine Blood Negative (Negative) 06/06/19 02:33 Urine Nitrite Negative (Negative) 06/06/19 02:33 Urine Bilirubin Small (Negative) H 06/06/19 02:33 Urine Urobilinogen 0.2 EU/dL (Up TO 0.2) 06/06/19 02:33 Ur Leukocyte Esterase Small (Negative) H 06/06/19 02:33 Urine RBC 0-2 HPF (0-2) 06/06/19 02:33 Urine WBC 3-5 HPF (0-5) 06/06/19 02:33 Ur Epithelial Cells Few HPF (Negative) 06/06/19 02:33 Urine Crystals Negative HPF (Negative) 06/06/19 02:33 Urine Bacteria Few HPF (Negative) 06/06/19 02:33 Urine Casts 0-2 hyaline LPF (Negative) 06/06/19 02:33 Urine Mucus Negative (Negative) 06/06/19 02:33 Ur Culture Indicated? Yes 06/06/19 02:33 Urine Glucose Negative mg/dL (Negative) 06/06/19 02:33
--- NOTE | 2019-06-07 09:07 | CMDISCH_ITS ---
LACE Index Scoring Tool - Questions: Length of Stay (in days): 2 Acuity (Admit via E.D.?): Yes Comorbidities: Diabetes w/o Complication, Any Tumor, Liver or Renal Disease E.D. Visits: 2 - Answers: Total Score: 12 Risk of Readmission: High Risk Care Management Discharge Reason for Hospitalization: SHANNON secondary to diuretics Discharge Plan: Katja will return to her home, with her daughters and Hospice support for end of life care. She will transport via EMS; CM coordinated through [facility] for 1100. Katja will have a hospital bed, bedside commode, shower chair, possible ninfa per MD. Patient/Family Education Needs: Review discharge instructions, discuss Ask Me Three. Services Needed at Discharge: DME Agency ([facility]-coordinated by [facility] ), Home Health Care Services ([facility] ), Transportation ([facility])
--- NOTE | 2019-06-07 11:54 | W.NUTCONSULT ---
Date of service: 06/07/19 Time of Service: 11:54 Nutritional Consult ASSESSMENT: 78 year old female admitted with end stage liver CA, dehydration, AKF, PMH: DM, liver cirrhosis. BMI wnl for age. Following diabetic diet with glucerna shakes BID with overall poor intake. Nursing reports to d/c home today on hospice care. Will be available prn. MONITORING AND EVALUATION: weight, po intake, labs Time Spent in Nutritional Counseling and Treatment: 0 time spent face to face
--- NOTE | 2019-06-07 14:08 | W.PALPGNOTE ---
Date of service: 06/07/19 Time of Service: 10:08 Assessment and Plan Assessment and plan (1) Hepatocellular carcinoma: Status: Acute (2) End of life care: Status: Acute Assessment and plan: 1. Both Katja and her family are comfortable with the decsion to take Katja home on Hospice. Please is to go home after equipment is delivered 2. Surgery did take off 5 L of ascites. She is more comfortable. Unfortunately the cath was not available to have this done once she is home Subjective Subjective Patient reports: feels better and pain is less Interval history since last seen: Katja is with her daughter. She looks content and happy in the knowledge that she will be going home soon. She did have paracentesis yesterday and is feeling better. Exam HENOH Ears: hearing grossly normal bilaterally Eyes General: appearance normal, both eyes and all related structures Resp Effort & Inspection: normal respiratory effort and not able to speak in complete sentences (language barrier) Cardio Rhythm: regular rhythm GI Palpation: soft Psych Mental Status: other (Appears content. Smiles at me ) Mood: other (Appears content. Smiles at me ) Objective Objective Clinical Data: Vital Signs Temperature 98.8 F 06/06/19 20:15 Temperature Source Temporal Artery Scan 06/06/19 17:55 Pulse 103 H 06/06/19 20:15 Pulse Rhythm Regular 06/06/19 07:53 Respiratory Rate 20 06/06/19 20:15 Respiratory Effort Non-Labored 06/07/19 08:47 Respiratory Depth Shallow 06/07/19 08:47 Respiratory Pattern Normal 06/07/19 08:47 Blood Pressure 90/46 L 06/06/19 17:28 Blood Pressure Mean 55 06/06/19 17:28 Blood Pressure Position Supine 06/05/19 15:23 Pulse Oximetry 95 06/06/19 20:15 Oxygen Delivery Method Room Air 06/06/19 20:15 Oxygen Flow Rate 0 06/06/19 20:15 Pain Level 0 06/06/19 20:15 Comment 06/06/19 20:15 Intake & Output 06/06/19 06/07/19 06/07/19 23:59 11:59 23:59 Intake Total 1315 / 2915 50 / 50 Output Total 100 / 635 330 / 330 Balance 1215 / 2280 -280 / -280 Intake: IV 1200 / 2200 Oral 115 / 715 50 / 50 Output: Urine 100 / 635 330 / 330 Other: Urine Color Light Berkley Dark Berkley Urine Appearance Clear Clear Urine Odor Normal Comment Pt has refused rivera Voiding Methods Bedside Commode Laboratory Results Sodium 126 mmol/L (136-145) L 06/06/19 06:00 Potassium 5.3 mmol/L (3.5-5.1) H 06/06/19 06:00 Chloride 97 mmol/L (98-107) L 06/06/19 06:00 Carbon Dioxide 19.3 mmol/L (21.0-32.0) L 06/06/19 06:00 Anion Gap 9.7 mmol/L (3-11) 06/06/19 06:00 BUN 73 mg/dL (7-18) H 06/06/19 06:00 Creatinine 1.65 mg/dL (0.55-1.02) H 06/06/19 06:00 Estimated GFR/1.73 m2 29.93 (mL/min/1.73m2) 06/06/19 06:00 Glucose 224 mg/dL (74-106) H 06/06/19 06:00 Calcium 7.6 mg/dL (8.5-10.1) L 06/06/19 06:00 Urine Color Yellow (Yellow) 06/06/19 02:33 Urine Clarity Clear (Clear) 06/06/19 02:33 Urine pH 5.5 (5-8) 06/06/19 02:33 Ur Specific [place] 1.025 (1.005-1.025) 06/06/19 02:33 Urine Protein Negative mg/dL (Negative) 06/06/19 02:33 Urine Ketones Trace mg/dL (Negative) H 06/06/19 02:33 Urine Blood Negative (Negative) 06/06/19 02:33 Urine Nitrite Negative (Negative) 06/06/19 02:33 Urine Bilirubin Small (Negative) H 06/06/19 02:33 Urine Urobilinogen 0.2 EU/dL (Up TO 0.2) 06/06/19 02:33 Ur Leukocyte Esterase Small (Negative) H 06/06/19 02:33 Urine RBC 0-2 HPF (0-2) 06/06/19 02:33 Urine WBC 3-5 HPF (0-5) 06/06/19 02:33 Ur Epithelial Cells Few HPF (Negative) 06/06/19 02:33 Urine Crystals Negative HPF (Negative) 06/06/19 02:33 Urine Bacteria Few HPF (Negative) 06/06/19 02:33 Urine Casts 0-2 hyaline LPF (Negative) 06/06/19 02:33 Urine Mucus Negative (Negative) 06/06/19 02:33 Ur Culture Indicated? Yes 06/06/19 02:33 Urine Glucose Negative mg/dL (Negative) 06/06/19 02:33
== END 2019-06-07 11:50 | disposition home or self-care (01) | DRG 683 ==
LOC: ICU 15:33
PROVIDERS: Internal Medicine; Admitting Provider Surgery; PCP Family Medicine; Visit Provider Surgery
PROC: 0W9G3ZZ Drainage of Peritoneal Cavity, Percutaneous Approach (ICD-10-PCS; CPT 49082; principal; 2019-06-05 11:45)
DX: N17.9 Acute kidney failure, unspecified (principal); C22.0 Liver cell carcinoma; R18.0 Malignant ascites; Z51.5 Encounter for palliative care; E86.0 Dehydration; K75.81 Nonalcoholic steatohepatitis (NASH); K74.69 Other cirrhosis of liver; E11.9 Type 2 diabetes mellitus without complications; I10 Essential (primary) hypertension; Z87.891 Personal history of nicotine dependence; K72.90 Hepatic failure, unspecified without coma; Z79.84 Long term (current) use of oral hypoglycemic drugs
CPT/HCPCS: 36415; 49083; 80048; 99222; 99232; 99233; 99239; 99253; 99255; 81003; 81015; 87086

== ENCOUNTER 2019-06-05 13:09 | Outpatient (CLI) | payer MEDICARE, MEDICAID, SELFPAY ==
--- NOTE | 2019-06-05 10:45 | DI.RAD_ITS ---
EXAM: PA and lateral chest. Flat and upright views of the abdomen. CLINICAL HISTORY: sob and chest pain /prior effusion, HEPATIC CIRRHOSIS, ASCITES, BREWSTER. COMPARISON: ABD FLAT UPRIGHT PA CHEST from 12/22/2014 TECHNIQUE: 2D digital imaging was performed. Supine and upright abdomen and PA and lateral chest vi ews were performed. FINDINGS: The upright view is limited by patient body habitus and motion. BOWEL GAS PATTERN: Nondistended.No free air. CALCIFICATIONS: No radiopaque calcifications. OSSEOUS STRUCTURES: Normal for age. OTHER FINDINGS: Right upper quadrant surgical clips. LUNGS Clear. No pleural abnormality seen. HEART: Normal. MEDIASTINUM: Normal. OTHER FINDINGS: None. IMPRESSION: No acute abnormality. DATA REPOSITORY: RADIATION DOSE DELIVERED:
[2019-06-05 11:23] LABS: Abs Immature Grans 0.05 k/cumm (0.0-0.09); Absolute Basophil Count 0.02 k/cumm (0.0-0.2); Absolute Eosinophil Count 0.02 k/cumm (0.0-0.7); Absolute Lymphocyte Count 0.88 k/cumm (1.2-3.4); Absolute Monocyte Count 0.71 k/cumm (0.11-0.7); Absolute Neutrophil Count 7.17 k/cumm (1.2-6.7); Basophils % 0.2; Eosinophils % 0.2; HCT 35.7 % (36.0-46.0); HGB 12.3 g/dL (12.0-15.5); Immature Grans % 0.6 %; Lymphocytes % 9.9; Mean Corp. HGB Concentration 34.5 g/dL (32.0-36.0); Mean Corpuscular Hemoglobin 28.9 pg (27.0-33.0); Mean Platelet Volume 9.1 fL (8.0-11.0); Neutrophils % 81.1; Platelet Count 287 x1000/uL (130-400); RBC 4.25 m/cumm (4.00-5.20); RBC Distribution Width 13.7 % (11.7-14.6); White Blood Cell Count 8.85 k/cumm (4.4-10.8)
[2019-06-05 11:34] LABS: Ammonia 17 umol/L (11-32)
[2019-06-05 11:40] LABS: ALT 15 U/L (14-59); AST 39 U/L (15-37); Albumin 2.4 g/dL (3.4-5.0); Alkaline Phosphatase 164 U/L (46-116); Anion Gap 12.3 mmol/L (3-11); Bilirubin, Total 0.8 mg/dL (0.2-1.0); CO2 20.7 mmol/L (21.0-32.0); CREATININE 2.09 mg/dL (0.55-1.02); Calcium 8.5 mg/dL (8.5-10.1); Chloride 93 mmol/L (98-107); Estimated GFR 22.79 (mL/min/1.73m2); Glucose 233 mg/dL (74-106); Potassium 5.7 mmol/L (3.5-5.1); Sodium 126 mmol/L (136-145); Total Protein 7.1 g/dL (6.4-8.2)
[2019-06-05 11:51] LABS: BUN 82 mg/dL (7-18); Troponin I < 0.05 ng/Ml (<0.06)
== END 2019-06-05 13:29 ==
PROVIDERS: PCP Family Medicine; Visit Provider Surgery
DX: R06.02 Shortness of breath (principal); R07.89 Other chest pain; C22.0 Liver cell carcinoma; K74.60 Unspecified cirrhosis of liver; R18.8 Other ascites; K75.81 Nonalcoholic steatohepatitis (NASH)
CPT/HCPCS: 36415; 80053; 74022; 82105; 82140; 84484; 85025